=== PATIENT | female | born 1945 | race Hispanic/Latino ===

== ENCOUNTER 2018-04-09 12:59 | Emergency (ER) | payer MEDICARE, MEDICAID, SELFPAY ==
[2018-04-09 13:08] VITALS: BP 156/70; PULSE 65; RESP 22; TEMP 36.4; O2SAT 92; BMI 25.7
--- NOTE | 2018-04-09 13:20 | ED.PEDSOB ---
HPI - Pediatric SOB/Dyspnea General Chief Complaint: Shortness of Breath/Dyspnea Stated Complaint: PT STATES POSSIBLE PNEUMONIA Time Seen by Provider: 04/09/18 13:20 Related Data Home Medications Medication Instructions Recorded Confirmed furosemide 40 mg PO QDAY #90 11/10/17 04/01/18 Previous Rx's Medication Instructions Recorded amlodipine [Norvasc] 10 mg PO QDAY #90 tab 10/17/17 aspirin 81 mg PO QDAY #100 tab-cap 10/17/17 clopidogrel [Plavix] 75 mg PO QDAY #90 tab 10/17/17 isosorbide mononitrate 30 mg PO QDAY #90 tab 10/17/17 lisinopril 20 mg PO Q DAY #90 tab 10/17/17 ranitidine HCl 150 mg PO BID #60 tab 10/17/17 Glucose: Home Monitor pkg BID #1 10/26/17 Glucose: Test Strips str BID #60 10/26/17 glipizide 5 mg PO AMAC #30 tab 10/26/17 hydrocortisone acetate [Anusol-HC] 25 mg R BID PRN #10 supp 11/10/17 atorvastatin [Lipitor] 20 mg PO HS #90 tab 11/26/17 clotrimazole-betamethasone 1 1 applictn TOP Q12H #45 gram 03/23/18 %-0.05 % topical cream miscellaneous medical supply misc #1 each 03/23/18 metoprolol succinate 100 mg PO QDAY #30 ter 03/24/18 cephalexin 500 mg capsule 500 mg PO BID #8 cap 04/01/18 Allergies Allergy/AdvReac Type Severity Reaction Status Date / Time codeine [CODEINE] Allergy Unknown Verified 04/09/18 13:08 azithromycin [AZITHROMYCIN] AdvReac Mild GI UPSET Verified 04/09/18 13:08 PFSH Medical History Reactive airway disease (Chronic) CHF (congestive heart failure) (Chronic) Chronic kidney disease (Chronic 01/18/17) Essential hypertension (Chronic 01/18/17) 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) Rheumatoid arthritis (Chronic 01/18/17) Type 2 diabetes mellitus with chronic kidney disease, 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) Mild dementia (Chronic 01/26/17) Mild eczema (Chronic 01/18/17) Status post stroke (Resolved 10/26/17) Carpal tunnel syndrome (Acute) Cataract (Acute) Family History Brother Heart disease High cholesterol Father Heart disease Mother Diabetes mellitus Heart disease Social History pets and animals: No water heater temp set < 120 deg: Yes working smoke detector in home: Yes fire extinguisher in home: No carbon monox detector in home: No Smoking Status: Former smoker Course Vital Signs - 8 hr 04/09/18 13:08 Temperature 97.6 F Pulse Rate 65 Respiratory Rate 22 Blood Pressure 156/70 H Pulse Oximetry 92 Discharge Plan Departure Prescriptions: No Action isosorbide mononitrate 30 MG tablet extended release 24 hr 30 mg PO QDAY Qty: 90 RF: 5 amlodipine [Norvasc] 5 MG tablet 10 mg PO QDAY Qty: 90 RF: 5 lisinopril 20 MG tablet 20 mg PO Q DAY Qty: 90 RF: 5 clopidogrel [Plavix] 75 MG tablet 75 mg PO QDAY Qty: 90 RF: 5 aspirin 81 MG tablet,delayed release (DR/EC) 81 mg PO QDAY Qty: 100 RF: 5 ranitidine HCl 150 MG tablet 150 mg PO BID Qty: 60 RF: 5 Glucose: Home Monitor BID Qty: 1 RF: 0 Glucose: Test Strips BID Qty: 60 RF: 4 glipizide 5 MG tablet 5 mg PO AMAC Qty: 30 RF: 0 furosemide 40 MG tablet 40 mg PO QDAY Qty: 90 RF: 0 hydrocortisone acetate [Anusol-HC] 25 MG suppository 25 mg R BID PRNQty: 10 RF: 0 atorvastatin [Lipitor] 20 MG tablet 20 mg PO HS Qty: 90 RF: 3 metoprolol succinate 100 mg tablet extended release 24 hr 100 mg PO QDAY Qty: 30 RF: 1 clotrimazole-betamethasone [Lotrisone] 1-0.05 % cream 1 applictn TOP Q12H Qty: 45 RF: 0 miscellaneous medical supply [Blood Pressure Cuff] misc .ROUTE .MEDSUPPLY Qty: 1 RF: 0 cephalexin 500 mg capsule 500 mg PO BID Qty: 8 RF: 0
--- NOTE | 2018-04-09 13:26 | DI.RAD.S_ITS ---
PROCEDURE: XR CHEST 1V INDICATIONS: shortness of breath TECHNIQUE: One view of the chest was acquired. COMPARISON: None. FINDINGS: Surgical changes and devices: Median sternotomy. Lungs and pleura: No pleural effusions or pneumothorax. There is moderate basilar predominant interstitial pulmonary opacity. Mediastinum: Mediastinal contours appear normal. Heart size is enlarged. Bones and chest wall: No suspicious bony lesions. Overlying soft tissues appear unremarkable. IMPRESSION: Moderate CHF versus atypical pneumonia. Dictated by: Prabhu Haley M.D. on 04/09/2018 at 14:02 Approved by: Prabhu Haley M.D. on 04/09/2018 at 14:02
[2018-04-09] MEDS: ALBUTEROL/IPRATROPIUM 3 ML AMPUL INH (13:28)
[2018-04-09 13:44] VITALS: PULSE 65; RESP 18; O2SAT 95
[2018-04-09 13:46] LABS: Add Manual Diff / Slide Review NO; Basophils Percent Auto 0.6 % (0-2); Eosinophils Percent Auto 3.1 % (2-4); Hemoglobin 12.2 g/dL (12.0-16.0); Lymphocytes Percent Auto 15.2 % (25-40); Mean Corpuscular HGB Conc 33.9 % (30-36); Mean Corpuscular Hemoglobin 31.4 PG (26-34); Mean Corpuscular Volume 92.6 fL (80-100); Monocytes Percent Auto 10.3 % (3-14); Neutrophils Absolute Auto 3300 /uL (3000-5900); Neutrophils Percent Auto 70.8 % (50-75); Platelet Count 130 X10^3/uL (150-400); Red Blood Cell Count 3.89 X10^6/uL (4.0-5.2); Red Cell Distribution Width 13.7 % (11.6-14.8); White Blood Cell Count 4.7 X10^3/uL (4.5-11.0)
[2018-04-09 13:58] LABS: INR 1.1 (0.9-1.3); Prothrombin Time 11.7 SECONDS (10.1-12.7)
[2018-04-09 14:01] LABS: D Dimer 423 ng/mL (<231)
[2018-04-09 14:02] LABS: Albumin 3.8 g/dL (3.5-5.0); Albumin Globulin Ratio 1.2 (1.0-2.8); Alkaline Phosphatase 95 U/L (38-126); BUN Creatinine Ratio 13.8 (6-22); Bilirubin Total 1.1 mg/dL (0.2-1.3); Calcium 9.2 mg/dL (8.4-10.2); Estimated Glomerular Filt Rate 18.1 mL/min (>60); Globulin 3.2 g/dL (1.7-4.1); Glucose 185 mg/dL (80-110); Lactate (Lactic Acid) 0.9 mmol/L (0.7-2.1); Sodium 141 mmol/L (137-145)
[2018-04-09 14:05] LABS: HEMOLYSIS 161 (0-50)
[2018-04-09 14:13] LABS: Alanine Aminotransferase 61 IU/L (9-52); Aspartate Aminotransferase 31 IU/L (14-36); Potassium 4.1 mmol/L (3.4-5.1)
[2018-04-09 14:19] VITALS: BP 165/63; PULSE 58; RESP 14; O2SAT 93
[2018-04-09 14:44] LABS: Creatine Kinase 39 U/L (30-135); Magnesium 1.9 mg/dL (1.6-2.3)
[2018-04-09 14:46] LABS: Procalcitonin < 0.05 ng/mL (<0.5)
[2018-04-09 14:58] LABS: Troponin I < 0.012 ng/mL (0.01-0.034)
[2018-04-09 16:05] VITALS: BP 125/71; PULSE 57; RESP 16; O2SAT 92
[2018-04-09] MEDS: cefTRIAXone 2,000 MG VIAL 1000 MG IM (16:26)
--- NOTE | 2018-04-09 19:07 | ED.SOB ---
HPI - SOB/Dyspnea General Chief Complaint: Shortness of Breath/Dyspnea Stated Complaint: PT STATES POSSIBLE PNEUMONIA Time Seen by Provider: 04/09/18 13:20 Source: patient Mode of arrival: ambulatory Limitations: no limitations History of Present Illness 73-year-old female with a history of hypertension, hyperlipidemia, diabetes, previous stroke, and coronary artery disease status post 4 vessel CABG and several MIs since then presents with cough and shortness of breath that began earlier today. She has also been significantly wheezy. On arrival here she received a Duoneb remarkably improved. She does not take inhalers at home and denies a history of COPD. She did smoke for approximately 35 years, quitting over 10 years ago. She also denies a history of known heart failure, although she does take Lasix as 1 of her daily medications. She denies fevers or chills. Her cough is productive for yellow sputum which is new for her. She has been on Keflex for skin infection from her primary care provider and has only several days remaining MD Complaint: shortness of breath and cough Related Data Home Medications Medication Instructions Recorded Confirmed furosemide 40 mg PO QDAY #90 11/10/17 04/01/18 Previous Rx's Medication Instructions Recorded amlodipine [Norvasc] 10 mg PO QDAY #90 tab 10/17/17 aspirin 81 mg PO QDAY #100 tab-cap 10/17/17 clopidogrel [Plavix] 75 mg PO QDAY #90 tab 10/17/17 isosorbide mononitrate 30 mg PO QDAY #90 tab 10/17/17 lisinopril 20 mg PO Q DAY #90 tab 10/17/17 ranitidine HCl 150 mg PO BID #60 tab 10/17/17 Glucose: Home Monitor pkg BID #1 10/26/17 Glucose: Test Strips str BID #60 10/26/17 glipizide 5 mg PO AMAC #30 tab 10/26/17 hydrocortisone acetate [Anusol-HC] 25 mg R BID PRN #10 supp 11/10/17 atorvastatin [Lipitor] 20 mg PO HS #90 tab 11/26/17 clotrimazole-betamethasone 1 1 applictn TOP Q12H #45 gram 03/23/18 %-0.05 % topical cream miscellaneous medical supply misc #1 each 03/23/18 metoprolol succinate 100 mg PO QDAY #30 ter 03/24/18 cephalexin 500 mg capsule 500 mg PO BID #8 cap 04/01/18 albuterol sulfate [ProAir HFA] 2 puff INHALATION Q4-6H PRN #8 gram 04/09/18 azithromycin 500 mg PO DAILY 5 Days #6 tab 04/09/18 prednisone 40 mg PO DAILY #10 tab 04/09/18 Allergies Allergy/AdvReac Type Severity Reaction Status Date / Time codeine [CODEINE] Allergy Unknown Verified 04/09/18 13:08 azithromycin [AZITHROMYCIN] AdvReac Mild GI UPSET Verified 04/09/18 13:08 Review of Systems Review of Systems All systems reviewed & are unremarkable except as noted in HPI and below Constitutional Denies chills, Denies fever(s), Denies lethargy and Denies weakness Eyes Denies change in vision, Denies eye discharge, Denies irritation and Denies loss of vision ENT Ears, Nose, Mouth, and Throat: Denies change in voice, Denies neck pain and Denies sore throat Cardiovascular Denies chest pain, Denies irregular heart rhythm, Denies lightheadedness, Denies palpitations, Reports dyspnea, Reports dyspnea on exertion and Denies orthopnea Respiratory Reports cough, Reports excessive phlegm production, Denies pain on inspiration, Reports dyspnea, Reports dyspnea on exertion, Denies stridor and Reports wheezing Gastrointestinal Gastrointestinal: Denies abdominal pain, Denies change in bowel habits, Denies diarrhea, Denies nausea and Denies vomiting Genitourinary Denies hematuria, Denies flank pain, Denies urinary incontinence and Denies urinary urgency Musculoskeletal Denies neck pain Integumentary/Breasts Denies pruritus, Denies erythema, Denies rash and Denies wounds Neurologic Denies confusion, Denies loss of vision and Denies weakness Psychiatric Denies anxiety, Denies confusion, Denies depression, Denies homicidal ideation and Denies suicidal ideation Endocrine Denies palpitations Hematologic/Lymphatic Denies easy bruising Allergic/Immunologic Reports wheezing PFSH Medical History Reactive airway disease (Chronic) CHF (congestive heart failure) (Chronic) Chronic kidney disease (Chronic 01/18/17) Essential hypertension (Chronic 01/18/17) 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) Rheumatoid arthritis (Chronic 01/18/17) Type 2 diabetes mellitus with chronic kidney disease, 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) Mild dementia (Chronic 01/26/17) Mild eczema (Chronic 01/18/17) Status post stroke (Resolved 10/26/17) Carpal tunnel syndrome (Acute) Cataract (Acute) Family History Brother Heart disease High cholesterol Father Heart disease Mother Diabetes mellitus Heart disease Social History pets and animals: No water heater temp set < 120 deg: Yes working smoke detector in home: Yes fire extinguisher in home: No carbon monox detector in home: No Smoking Status: Former smoker Exam Initial Vital Signs Initial Vital Signs: Vital Signs Temperature 97.6 F 04/09/18 13:08 Pulse Rate 65 04/09/18 13:08 Respiratory Rate 22 04/09/18 13:08 Blood Pressure 156/70 H 04/09/18 13:08 Pulse Oximetry 92 04/09/18 13:08 Const General: cooperative and well developed Nutritional Appearance: well nourished Orientation: alert, awake, oriented x3 and not confused HENMT Head: normocephalic and atraumatic Ears: external ears normal and TM's normal bilaterally Nose: external nose normal and No nasal discharge Face and sinus: sinuses nontender, face symmetric, no sinus tenderness and No dry mucous membranes Mouth: oral mucosae normal and moist mucous membranes Teeth and gingiva: dentition normal Throat: tonsils normal and uvula midline Eyes General: appearance normal, both eyes and all related structures Eyelids: eyelids normal Conjunctivae: conjunctivae normal Sclera: sclerae normal Pupils: PERRL EOM: EOM intact bilaterally Neck Neck: normal visual inspection, trachea midline, No lymphadenopathy, No midline deformity and No JVD Lymphatic: No lymphedema Chest Chest: normal inspection of the chest Resp Effort & Inspection: normal respiratory effort, able to speak in complete sentences, no respiratory distress and no use of accessory muscles Auscultation: no rales, rhonchi upper bilaterally and lower bilaterally and wheezes expiratory wheezes and scattered wheezes Cardio Rate: regular rate Rhythm: regular rhythm Heart Sounds: no click, no gallops, no murmurs and no rubs Pulses: normal peripheral pulses GI Inspection: non-distended Palpation: soft, no hepatosplenomegaly, No guarding, No pulsatile mass and No tender Auscultation: normal bowel sounds Back/Spine/Pelvis Back: No CVA tenderness Cervical Spine: cervical ROM normal and No pain with cervical ROM Thoracic/Lumbar Spine: thoracic and lumbar spine normal to inspection Skin General: no rashes or lesions noted, No jaundice and No petechiae Neuro General: alert, oriented x3, gait normal and no focal motor deficits Cranial Nerves: CN's II-XI intact bilaterally Speech: speech normal Motor: strength 5/5 throughout Sensory Exam: no sensory deficits noted Extrem General: full ROM, no clubbing, cyanosis or edema, no pedal edema and no calf tenderness Psych Appearance: well kempt Mental Status: mental status grossly normal Attitude: cooperative Thought Content: normal and suicidality Judgment: judgment good Course Orders Ordered: ED Orders 04/09/18 13:21 EKG-12 Lead Stat 04/09/18 13:23 Consult to Respiratory Therapy Evaluate & Treat 04/09/18 13:26 XR chest 1V Stat 04/09/18 13:30 B Type Natriuretic Peptide Stat Complete Blood Count AUTO DIFF Stat Comprehensive Metabolic Panel Stat D Dimer Stat Lactate (Lactic Acid) Stat Magnesium Stat Procalcitonin Stat Prothrombin Time INR Stat Troponin with CK Cardiac Panel Stat Discontinued Medications Albuterol/Ipratropium (Duoneb) 3 ml INH NOW ONE Stop: 04/09/18 13:23 Last Admin: 04/09/18 13:28 Dose: 3 ml Ceftriaxone Sodium (Rocephin) 1,000 mg IM NOW ONE Stop: 04/09/18 16:25 Last Admin: 04/09/18 16:26 Dose: 1,000 mg Vital Signs - 8 hr 04/09/18 13:08 04/09/18 13:44 04/09/18 14:19 Temperature 97.6 F Pulse Rate 65 65 58 L Respiratory Rate 22 18 14 Blood Pressure 156/70 H Blood Pressure [Right Arm] 165/63 H Pulse Oximetry 92 95 93 04/09/18 16:05 Temperature Pulse Rate 57 L Respiratory Rate 16 Blood Pressure Blood Pressure [Right Arm] 125/71 H Pulse Oximetry 92 MDM - SOB/Dyspnea Differential Diagnosis Likely acute exacerbation of chronic obstructive airways disease, congestive heart failure, community acquired pneumonia and pulmonary embolism Medical Records Attestation: I reviewed the patient's medical records. Lab Data Attestation: I reviewed the patient's lab results. Result diagrams: 04/09/18 13:30 04/09/18 13:30 Lab Results 04/09/18 04/09/18 04/09/18 Range/Units 13:30 13:30 13:30 WBC 4.7 (4.5-11.0) X10^3/uL RBC 3.89 L (4.0-5.2) X10^6/uL Hgb 12.2 (12.0-16.0) g/dL Hct 36.0 (36-46) % MCV 92.6 (80-100) fL MCH 31.4 (26-34) PG MCHC 33.9 (30-36) % RDW 13.7 (11.6-14.8) % Plt Count 130 L (150-400) X10^3/uL Neut % (Auto) 70.8 (50-75) % Lymph % (Auto) 15.2 L (25-40) % [place] % (Auto) 10.3 (3-14) % Eos % (Auto) 3.1 (2-4) % Baso % (Auto) 0.6 (0-2) % Neut # (Auto) 3300 (7023-8795) /uL PT (10.1-12.7) SECONDS INR (0.9-1.3) D-Dimer (<231) ng/mL Sodium (137-145) mmol/L Potassium (3.4-5.1) mmol/L Chloride (98-107) mmol/L Carbon Dioxide (22-32) mmol/L BUN (7-17) mg/dL Creatinine (0.52-1.04) mg/dL Estimated GFR (>60) mL/min BUN/Creatinine Ratio (6-22) Glucose (80-110) mg/dL Lactate (0.7-2.1) mmol/L Calcium (8.4-10.2) mg/dL Magnesium 1.9 (1.6-2.3) mg/dL Total Bilirubin (0.2-1.3) mg/dL AST (14-36) IU/L ALT (9-52) IU/L Alkaline Phosphatase (38-126) U/L Total Creatine Kinase 39 (30-135) U/L Troponin I < 0.012 (0.01-0.034) ng/mL B-Natriuretic Peptide 1540.0 (<100) Total Protein (6.3-8.2) g/dL Albumin (3.5-5.0) g/dL Globulin (1.7-4.1) g/dL Albumin/Globulin Ratio (1.0-2.8) Procalcitonin < 0.05 (<0.5) ng/mL 04/09/18 04/09/18 04/09/18 Range/Units 13:30 13:30 13:30 WBC (4.5-11.0) X10^3/uL RBC (4.0-5.2) X10^6/uL Hgb (12.0-16.0) g/dL Hct (36-46) % MCV (80-100) fL MCH (26-34) PG MCHC (30-36) % RDW (11.6-14.8) % Plt Count (150-400) X10^3/uL Neut % (Auto) (50-75) % Lymph % (Auto) (25-40) % [place] % (Auto) (3-14) % Eos % (Auto) (2-4) % Baso % (Auto) (0-2) % Neut # (Auto) (1276-2541) /uL PT 11.7 (10.1-12.7) SECONDS INR 1.1 (0.9-1.3) D-Dimer 423 H (<231) ng/mL Sodium 141 (137-145) mmol/L Potassium 4.1 (3.4-5.1) mmol/L Chloride 109.0 H (98-107) mmol/L Carbon Dioxide 19.0 L (22-32) mmol/L BUN 36.0 H (7-17) mg/dL Creatinine 2.60 H (0.52-1.04) mg/dL Estimated GFR 18.1 L (>60) mL/min BUN/Creatinine Ratio 13.8 (6-22) Glucose 185 H (80-110) mg/dL Lactate 0.9 (0.7-2.1) mmol/L Calcium 9.2 (8.4-10.2) mg/dL Magnesium (1.6-2.3) mg/dL Total Bilirubin 1.1 (0.2-1.3) mg/dL AST 31 (14-36) IU/L ALT 61 H (9-52) IU/L Alkaline Phosphatase 95 (38-126) U/L Total Creatine Kinase (30-135) U/L Troponin I (0.01-0.034) ng/mL B-Natriuretic Peptide (<100) Total Protein 7.0 (6.3-8.2) g/dL Albumin 3.8 (3.5-5.0) g/dL Globulin 3.2 (1.7-4.1) g/dL Albumin/Globulin Ratio 1.2 (1.0-2.8) Procalcitonin (<0.5) ng/mL Imaging Data Chest x-ray: Radiologist's impression: PROCEDURE: XR CHEST 1V INDICATIONS: shortness of breath TECHNIQUE: One view of the chest was acquired. COMPARISON: None. FINDINGS: Surgical changes and devices: Median sternotomy. Lungs and pleura: No pleural effusions or pneumothorax. There is moderate basilar predominant interstitial pulmonary opacity. Mediastinum: Mediastinal contours appear normal. Heart size is enlarged. Bones and chest wall: No suspicious bony lesions. Overlying soft tissues appear unremarkable. IMPRESSION: Moderate CHF versus atypical pneumonia. Dictated by: Prabhu Haley M.D. on 04/09/2018 at 14:02 Approved by: Prabhu Haley M.D. on 04/09/2018 at 14:02 ECG Data Attestation: I personally reviewed and interpreted this ECG as follows: Prior ECG tracings: available for review Interpretation: EKG performed at 1:14 p.m. shows sinus rhythm with no acute ischemia. She has Q-waves present in leads 3, AVF, V1 through V3 consistent with old ND. No change from previous EKG dated 01/11/2017 MDM Narrative Medical decision making narrative: For shortness of breath I considered mainly CHF versus COPD exacerbation/pneumonia. She has not been diagnosed formally with COPD, however given her smoking history and her age she is certainly at risk for this. With her increased sputum production, sputum color change, and wheezing/chest tightness her symptoms are consistent with a COPD exacerbation. Her chest x-ray does showed atypical pneumonia versus CHF. Her BNP is elevated but there is no JVD and she has no lower extremity edema. I do not suspect that this is CHF related. She is already on a diuretic medication. She was started on steroids, azithromycin, given a dose of Rocephin prior to discharge, and advised close follow-up. Return precautions were given. I considered pulmonary embolus my workup, however with the wheezing and chest tightness, COPD, pneumonia, and CHF are more likely. She is not hypoxic or tachycardic here. She has no lower extremity edema. She may benefit from pulmonary function tests after the acute episode she is experiencing. Also it is noted that she has chronic renal failure and her kidney function is at baseline today. she has no SIRS criteria. Lactate is not elevated nor is procalcitonin. I also considered ACS, however she has no change in her EKG and troponin is not elevated. Discharge Plan Departure Patient Disposition: Home, Self-Care Clinical Impression: Atypical pneumonia, Wheezing Discharge Date/Time: 04/09/18 16:39 Interventions: ED Discharge Assessment Last Done: 04/09/18 16:31 Instructions: DI for Atypical Pneumonia Activity Restrictions/Additional Instructions: Thank you for trusting is with her care today. You're ER evaluation revealed a pneumonia. Please take the azithromycin prescription as prescribed. Also take the prednisone prescription to help with shortness of breath and chest tightness. Use the albuterol inhaler as needed for wheezing or shortness of breath. Return to the ER for new or worsening symptoms. Prescriptions: New azithromycin 250 mg tablet 500 mg PO DAILY 5 Days Qty: 6 RF: 0 prednisone 20 mg tablet 40 mg PO DAILY Qty: 10 RF: 0 albuterol sulfate [ProAir HFA] 90 mcg/actuation HFA aerosol inhaler 2 puff INHALATION Q4-6H PRN (Reason: shortness of breath or wheezing) Qty: 8 RF: 0 No Action isosorbide mononitrate 30 MG tablet extended release 24 hr 30 mg PO QDAY Qty: 90 RF: 5 amlodipine [Norvasc] 5 MG tablet 10 mg PO QDAY Qty: 90 RF: 5 lisinopril 20 MG tablet 20 mg PO Q DAY Qty: 90 RF: 5 clopidogrel [Plavix] 75 MG tablet 75 mg PO QDAY Qty: 90 RF: 5 aspirin 81 MG tablet,delayed release (DR/EC) 81 mg PO QDAY Qty: 100 RF: 5 ranitidine HCl 150 MG tablet 150 mg PO BID Qty: 60 RF: 5 Glucose: Home Monitor BID Qty: 1 RF: 0 Glucose: Test Strips BID Qty: 60 RF: 4 glipizide 5 MG tablet 5 mg PO AMAC Qty: 30 RF: 0 furosemide 40 MG tablet 40 mg PO QDAY Qty: 90 RF: 0 hydrocortisone acetate [Anusol-HC] 25 MG suppository 25 mg R BID PRNQty: 10 RF: 0 atorvastatin [Lipitor] 20 MG tablet 20 mg PO HS Qty: 90 RF: 3 metoprolol succinate 100 mg tablet extended release 24 hr 100 mg PO QDAY Qty: 30 RF: 1 clotrimazole-betamethasone [Lotrisone] 1-0.05 % cream 1 applictn TOP Q12H Qty: 45 RF: 0 miscellaneous medical supply [Blood Pressure Cuff] misc .ROUTE .MEDSUPPLY Qty: 1 RF: 0 cephalexin 500 mg capsule 500 mg PO BID Qty: 8 RF: 0 Referrals: Alexa Sauer MD [Primary Care Provider] -
== END 2018-04-09 16:39 | disposition home or self-care (01) ==
PROVIDERS: Emergency Provider Emergency Medicine; PCP Family Medicine
DX: J18.9 Pneumonia, unspecified organism (principal); R06.2 Wheezing
CPT/HCPCS: 36591; 71045; 80053; 82550; 82553; 83605; 83735; 83880; 84145; 84484; 85025; 85379; 85610; 93005; 94640; 96372; 99282; 99285; J0696

== ENCOUNTER 2018-06-29 14:33 | Emergency (ER) | payer MEDICARE, MEDICAID, SELFPAY ==
[2018-06-29] VITALS (7 sets, daily range): BP systolic 111–134; BP diastolic 56–97; PULSE 54–60; RESP 18–27; TEMP 36.5; O2SAT 91–98; BMI 37.8
--- NOTE | 2018-06-29 14:42 | DI.RAD.S_ITS ---
PROCEDURE: XR CHEST 2V INDICATIONS: shortness of breath TECHNIQUE: 2 views of the chest were acquired. COMPARISON: [facility], CHEST 2 VIEW, 10/13/2017, 12:24. [facility], CHEST 1 VIEW, 10/16/2017, 8:38. [facility], CHEST 1 VIEW, 11/10/2017, 14:07. [facility], XR CHEST 1V, 04/09/2018, 13:34. FINDINGS: Surgical changes and devices: Post CABG changes are seen. Lungs and pleura: There is a small right-sided pleural effusion, overlying streaky density. Interstitial prominence is seen throughout. No pneumothorax is seen. Mediastinum: Mediastinal contours are normal. Heart size is normal. Bones and chest wall: No suspicious bony abnormalities. Age-appropriate bony degenerative changes are seen. Soft tissues appear unremarkable. IMPRESSION: New right-sided pleural effusion, and overlying density, which may be related to atelectasis or infiltrate. Interstitial prominence is seen throughout. The interstitial prominence is nonspecific, yet may be related to pulmonary edema. Postoperative and degenerative changes. Dictated by: Kam Mckeon M.D. on 06/29/2018 at 14:28 Approved by: Kam Mckeon M.D. on 06/29/2018 at 14:30
[2018-06-29] MEDS: ALBUTEROL/IPRATROPIUM 3 ML AMPUL INH (14:46)
[2018-06-29 15:05] LABS: Add Manual Diff / Slide Review NO; Basophils Percent Auto 0.6 % (0-2); Eosinophils Percent Auto 0.8 % (2-4); Hematocrit 35.1 % (36-46); Hemoglobin 11.4 g/dL (12.0-16.0); Lymphocytes Percent Auto 21.3 % (25-40); Mean Corpuscular HGB Conc 32.6 % (30-36); Mean Corpuscular Hemoglobin 29.7 PG (26-34); Monocytes Percent Auto 9.7 % (3-14); Neutrophils Absolute Auto 2900 /uL (3000-5900); Neutrophils Percent Auto 67.6 % (50-75); Platelet Count 118 X10^3/uL (150-400); Red Blood Cell Count 3.85 X10^6/uL (4.0-5.2); Red Cell Distribution Width 15.7 % (11.6-14.8); White Blood Cell Count 4.4 X10^3/uL (4.5-11.0)
[2018-06-29 15:18] LABS: Alanine Aminotransferase 91 IU/L (9-52); Albumin 3.9 g/dL (3.5-5.0); Albumin Globulin Ratio 1.5 (1.0-2.8); Alkaline Phosphatase 177 U/L (38-126); Aspartate Aminotransferase 77 IU/L (14-36); BUN Creatinine Ratio 20.7 (6-22); Bilirubin Total 0.6 mg/dL (0.2-1.3); Blood Urea Nitrogen 60 mg/dL (7-17); Calcium 9.4 mg/dL (8.4-10.2); Carbon Dioxide 21 mmol/L (22-32); Chloride 107 mmol/L (98-107); Globulin 2.6 g/dL (1.7-4.1); Glucose 160 mg/dL (80-110); HEMOLYSIS < 15 (0-50); Potassium 3.9 mmol/L (3.4-5.1); Sodium 142 mmol/L (137-145); Total Protein 6.5 g/dL (6.3-8.2)
[2018-06-29 15:40] LABS: Lactate (Lactic Acid) 1.1 mmol/L (0.7-2.1)
[2018-06-29] MEDS: CEFTRIAXONE 2 GM/50 ML FROZ.PIGGY IV (16:15)
[2018-06-29] MEDS: AZITHROMYCIN 500 MG in DEXTROSE 5% IN WATER 250 ML IV (16:54)
[2018-06-29] MEDS: FUROSEMIDE 40 MG/4 ML VIAL 20 MG IV (17:43)
--- NOTE | 2018-07-15 02:35 | ED_ITS ---
HPI - SOB/Dyspnea General Chief Complaint: Shortness of Breath/Dyspnea Stated Complaint: SOB Time Seen by Provider: 06/29/18 15:16 Source: patient Limitations: no limitations Related Data Home Medications Medication Instructions Recorded Confirmed furosemide 40 mg PO QDAY #90 11/10/17 04/01/18 Previous Rx's Medication Instructions Recorded amlodipine [Norvasc] 10 mg PO QDAY #90 tab 10/17/17 aspirin 81 mg PO QDAY #100 tab-cap 10/17/17 clopidogrel [Plavix] 75 mg PO QDAY #90 tab 10/17/17 isosorbide mononitrate 30 mg PO QDAY #90 tab 10/17/17 lisinopril 20 mg PO Q DAY #90 tab 10/17/17 Glucose: Home Monitor pkg BID #1 10/26/17 Glucose: Test Strips str BID #60 10/26/17 glipizide 5 mg PO AMAC #30 tab 10/26/17 hydrocortisone acetate [Anusol-HC] 25 mg R BID PRN #10 supp 11/10/17 atorvastatin [Lipitor] 20 mg PO HS #90 tab 11/26/17 clotrimazole-betamethasone 1 1 applictn TOP Q12H #45 gram 03/23/18 %-0.05 % topical cream miscellaneous medical supply misc #1 each 03/23/18 cephalexin 500 mg capsule 500 mg PO BID #8 cap 04/01/18 prednisone 40 mg PO DAILY #10 tab 04/09/18 albuterol sulfate HFA 90 2 puff INHALATION Q4-6H PRN #8 gram 04/15/18 mcg/actuation aerosol inhaler metoprolol succinate ER 100 mg 100 mg PO QDAY #30 ter 06/27/18 tablet,extended release 24 hr ranitidine HCl 150 mg PO BID #60 tab 06/27/18 azithromycin [Zithromax Z-Minh] See Label Instructions .ROUTE 06/29/18 .COMPLEX #6 tab Allergies Allergy/AdvReac Type Severity Reaction Status Date / Time codeine [CODEINE] Allergy Unknown Verified 06/29/18 14:38 azithromycin [AZITHROMYCIN] AdvReac Mild GI UPSET Verified 06/29/18 14:38 PFSH Medical History Reactive airway disease (Chronic) CHF (congestive heart failure) (Chronic) Chronic kidney disease (Chronic 01/18/17) Essential hypertension (Chronic 01/18/17) 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) Rheumatoid arthritis (Chronic 01/18/17) Type 2 diabetes mellitus with chronic kidney disease, 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) Mild dementia (Chronic 01/26/17) Mild eczema (Chronic 01/18/17) Status post stroke (Resolved 10/26/17) Carpal tunnel syndrome (Acute) Cataract (Acute) Family History Brother Heart disease High cholesterol Father Heart disease Mother Diabetes mellitus Heart disease Social History pets and animals: No water heater temp set < 120 deg: Yes working smoke detector in home: Yes fire extinguisher in home: No carbon monox detector in home: No Smoking Status: Former smoker Exam Initial Vital Signs Initial Vital Signs: Vital Signs Temperature 97.7 F 06/29/18 14:38 Pulse Rate 59 L 06/29/18 14:38 Respiratory Rate 22 06/29/18 14:38 Blood Pressure 126/74 H 06/29/18 14:38 Pulse Oximetry 91 06/29/18 14:38 Course Orders Ordered: Discontinued Medications Albuterol/Ipratropium (Duoneb) 3 ml INH NOW PRN PRN Reason: Shortness Of Breath Last Admin: 06/29/18 14:46 Dose: 3 ml Furosemide (Lasix) 40 mg IV NOW ONE Stop: 06/29/18 17:13 Last Admin: 06/29/18 17:42 Dose: Furosemide (Lasix) 20 mg IV NOW ONE Stop: 06/29/18 17:42 Last Admin: 06/29/18 17:43 Dose: 20 mg Azithromycin 500 mg/ Dextrose 250 mls @ 250 mls/hr IV NOW ONE Stop: 06/29/18 15:59 Last Infusion: 06/29/18 18:27 Dose: 0 mls/hr Admin: 06/29/18 16:54 Dose: 250 mls/hr Ceftriaxone Sodium/Dextrose (Rocephin) 2 gm in 50 mls @ 100 mls/hr IV NOW ONE Stop: 06/29/18 16:27 Last Infusion: 06/29/18 16:44 Dose: 0 mls/hr Admin: 06/29/18 16:15 Dose: 100 mls/hr Vital Signs - 8 hr 06/29/18 14:38 06/29/18 14:47 Temperature 97.7 F Pulse Rate 59 L 57 L Respiratory Rate 22 27 H Blood Pressure 126/74 H Pulse Oximetry 91 98 MDM - SOB/Dyspnea Lab Data Result diagrams: 06/29/18 14:55 06/29/18 14:55 Lab Results 06/29/18 06/29/18 06/29/18 Range/Units 14:55 14:55 14:55 WBC 4.4 L (4.5-11.0) X10^3/uL RBC 3.85 L (4.0-5.2) X10^6/uL Hgb 11.4 L (12.0-16.0) g/dL Hct 35.1 L (36-46) % MCV 91.0 (80-100) fL MCH 29.7 (26-34) PG MCHC 32.6 (30-36) % RDW 15.7 H (11.6-14.8) % Plt Count 118 L (150-400) X10^3/uL Neut % (Auto) 67.6 (50-75) % Lymph % (Auto) 21.3 L (25-40) % [place] % (Auto) 9.7 (3-14) % Eos % (Auto) 0.8 L (2-4) % Baso % (Auto) 0.6 (0-2) % Neut # (Auto) 2900 L (6784-9889) /uL Sodium 142 (137-145) mmol/L Potassium 3.9 (3.4-5.1) mmol/L Chloride 107 (98-107) mmol/L Carbon Dioxide 21 L (22-32) mmol/L BUN 60 H (7-17) mg/dL Creatinine 2.90 H (0.52-1.04) mg/dL Estimated GFR 16.0 L (>60) mL/min BUN/Creatinine Ratio 20.7 (6-22) Glucose 160 H (80-110) mg/dL Lactate (0.7-2.1) mmol/L Calcium 9.4 (8.4-10.2) mg/dL Total Bilirubin 0.6 (0.2-1.3) mg/dL AST 77 H (14-36) IU/L ALT 91 H (9-52) IU/L Alkaline Phosphatase 177 H (38-126) U/L B-Natriuretic Peptide 3210.0 H (<100) Total Protein 6.5 (6.3-8.2) g/dL Albumin 3.9 (3.5-5.0) g/dL Globulin 2.6 (1.7-4.1) g/dL Albumin/Globulin Ratio 1.5 (1.0-2.8) 06/29/18 Range/Units 15:22 WBC (4.5-11.0) X10^3/uL RBC (4.0-5.2) X10^6/uL Hgb (12.0-16.0) g/dL Hct (36-46) % MCV (80-100) fL MCH (26-34) PG MCHC (30-36) % RDW (11.6-14.8) % Plt Count (150-400) X10^3/uL Neut % (Auto) (50-75) % Lymph % (Auto) (25-40) % [place] % (Auto) (3-14) % Eos % (Auto) (2-4) % Baso % (Auto) (0-2) % Neut # (Auto) (1255-0667) /uL Sodium (137-145) mmol/L Potassium (3.4-5.1) mmol/L Chloride (98-107) mmol/L Carbon Dioxide (22-32) mmol/L BUN (7-17) mg/dL Creatinine (0.52-1.04) mg/dL Estimated GFR (>60) mL/min BUN/Creatinine Ratio (6-22) Glucose (80-110) mg/dL Lactate 1.1 (0.7-2.1) mmol/L Calcium (8.4-10.2) mg/dL Total Bilirubin (0.2-1.3) mg/dL AST (14-36) IU/L ALT (9-52) IU/L Alkaline Phosphatase (38-126) U/L B-Natriuretic Peptide (<100) Total Protein (6.3-8.2) g/dL Albumin (3.5-5.0) g/dL Globulin (1.7-4.1) g/dL Albumin/Globulin Ratio (1.0-2.8) Discharge Plan Departure Patient Disposition: Home Clinical Impression: Pneumonia, CHF (congestive heart failure) Discharge Date/Time: 06/29/18 18:28 Interventions: ED Discharge Assessment Last Done: 06/29/18 18:27 Instructions: DI for Heart Failure, DI for Pneumonia -- Adult Activity Restrictions/Additional Instructions: Your chest x-ray shows some fluid buildup in the bottom of your right lung. This may be partially due to chronic congestive heart failure, but the appearance indicates that there may be some pneumonia involved, as well. Because of this, you have been started on antibiotics in the Emergency Department. You have also been given a small dose of a diuretic through the IV , which is similar to a ?water pill?. You have opted for home care, which is acceptable at this point in time. However, if your symptoms worsen at all you should return to the Emergency Department without delay. Please plan to follow up with your primary care physician on this coming Wednesday. Please call the office tomorrow to make an appointment. Prescriptions: New azithromycin [Zithromax Z-Minh] 250 mg tablet See Label Instructions .ROUTE .COMPLEX Qty: 6 RF: 0 No Action isosorbide mononitrate 30 MG tablet extended release 24 hr 30 mg PO QDAY Qty: 90 RF: 5 amlodipine [Norvasc] 5 MG tablet 10 mg PO QDAY Qty: 90 RF: 5 lisinopril 20 MG tablet 20 mg PO Q DAY Qty: 90 RF: 5 clopidogrel [Plavix] 75 MG tablet 75 mg PO QDAY Qty: 90 RF: 5 aspirin 81 MG tablet,delayed release (DR/EC) 81 mg PO QDAY Qty: 100 RF: 5 Glucose: Home Monitor BID Qty: 1 RF: 0 Glucose: Test Strips BID Qty: 60 RF: 4 glipizide 5 MG tablet 5 mg PO AMAC Qty: 30 RF: 0 furosemide 40 MG tablet 40 mg PO QDAY Qty: 90 RF: 0 hydrocortisone acetate [Anusol-HC] 25 MG suppository 25 mg R BID PRNQty: 10 RF: 0 atorvastatin [Lipitor] 20 MG tablet 20 mg PO HS Qty: 90 RF: 3 albuterol sulfate [ProAir HFA] 90 mcg/actuation HFA aerosol inhaler 2 puff INHALATION Q4-6H PRN (Reason: shortness of breath or wheezing) Qty: 8 RF: 2 metoprolol succinate 100 mg tablet extended release 24 hr 100 mg PO QDAY Qty: 30 RF: 3 ranitidine HCl 150 mg tablet 150 mg PO BID Qty: 60 RF: 5 clotrimazole-betamethasone [Lotrisone] 1-0.05 % cream 1 applictn TOP Q12H Qty: 45 RF: 0 miscellaneous medical supply [Blood Pressure Cuff] misc .ROUTE .MEDSUPPLY Qty: 1 RF: 0 cephalexin 500 mg capsule 500 mg PO BID Qty: 8 RF: 0 prednisone 20 mg tablet 40 mg PO DAILY Qty: 10 RF: 0 Referrals: Alexa Sauer MD [Primary Care Provider] - 07/04/18 12:00 am (Please call the office tomorrow to make an appointment for July 04.)
== END 2018-06-29 18:28 | disposition home or self-care (01) ==
PROVIDERS: Emergency Provider Emergency Medicine; PCP Family Medicine
DX: J18.9 Pneumonia, unspecified organism (principal); I50.9 Heart failure, unspecified
CPT/HCPCS: 36415; 36591; 71046; 80053; 83605; 83880; 85025; 93005; 93010; 94640; 96365; 96366; 96375; 99284; 99285; J0696; J1940

== ENCOUNTER 2018-09-09 11:07 | Emergency (ER) | payer MEDICARE, MEDICAID, SELFPAY ==
[2018-09-09 11:18] VITALS: BP 109/63; PULSE 55; RESP 18; TEMP 36.9; O2SAT 98; BMI 35.6
--- NOTE | 2018-09-09 11:18 | ED.FEMALEGU ---
HPI - Female Genitourinary General Chief complaint: Urogenital-Female Stated complaint: hemmoroids, uti? Time Seen by Provider: 09/09/18 11:16 Source: patient Mode of arrival: ambulatory Limitations: no limitations History of Present Illness HPI Narrative: 73-year-old female here with a family friend for concerns of bright red blood per rectum for 2 days and then also symptoms consistent with her prior urinary tract infections for 2 days as well. Patient is not on anticoagulation. She has no pain with bowel movements. No bleeding in between bowel movements. Has had urinary tract infections in the past and she states this feels like prior urinary tract infection Related Data Home Medications Medication Instructions Recorded Confirmed furosemide 40 mg PO QDAY #90 11/10/17 04/01/18 acyclovir 1 tab PO DAILY 09/09/18 09/09/18 albuterol sulfate [Ventolin HFA] 2 puff INHALATION Q4-6H PRN 09/09/18 09/09/18 amlodipine 10 mg PO DAILY 09/09/18 09/09/18 glipizide 1 tab PO BID 09/09/18 09/09/18 levetiracetam 250 mg PO BID 09/09/18 09/09/18 prednisolone acetate 1 drp OPHTHALMIC (EYE) QID 09/09/18 09/09/18 ranitidine HCl 09/09/18 09/09/18 torsemide 09/09/18 09/09/18 Previous Rx's Medication Instructions Recorded amlodipine [Norvasc] 10 mg PO QDAY #90 tab 10/17/17 aspirin 81 mg PO QDAY #100 tab-cap 10/17/17 clopidogrel [Plavix] 75 mg PO QDAY #90 tab 10/17/17 isosorbide mononitrate 30 mg PO QDAY #90 tab 10/17/17 lisinopril 20 mg PO Q DAY #90 tab 10/17/17 Glucose: Home Monitor pkg BID #1 10/26/17 Glucose: Test Strips str BID #60 10/26/17 hydrocortisone acetate [Anusol-HC] 25 mg R BID PRN #10 supp 11/10/17 atorvastatin [Lipitor] 20 mg PO HS #90 tab 11/26/17 clotrimazole-betamethasone 1 1 applictn TOP Q12H #45 gram 05/02/18 %-0.05 % topical cream miscellaneous medical supply [facility] [place] #1 each 03/23/18 cephalexin 500 mg capsule 500 mg PO BID #8 cap 04/01/18 prednisone 40 mg PO DAILY #10 tab 04/09/18 albuterol sulfate HFA 90 2 puff INHALATION Q4-6H PRN #8 gram 04/15/18 mcg/actuation aerosol inhaler azithromycin [Zithromax Z-Mnih] See Label Instructions .ROUTE 06/29/18 .COMPLEX #6 tab metoprolol succinate ER 100 mg 100 mg PO QDAY #90 tab 07/27/18 tablet,extended release 24 hr ranitidine HCl 150 mg PO BID #60 tab 07/27/18 nitrofurantoin monohyd/m-cryst 100 mg PO BID 5 Days #10 cap 09/09/18 Allergies Allergy/AdvReac Type Severity Reaction Status Date / Time codeine [CODEINE] Allergy Unknown Verified 06/29/18 14:38 azithromycin [AZITHROMYCIN] AdvReac Mild GI UPSET Verified 06/29/18 14:38 Review of Systems Constitutional Denies fever(s) Cardiovascular Denies chest pain and Denies dyspnea Respiratory Denies dyspnea Gastrointestinal Gastrointestinal: Denies abdominal pain, Denies change in stool character, Denies nausea and Denies vomiting Comments: Bright red blood per rectum Musculoskeletal Denies myalgias and Denies arthralgias Integumentary/Breasts Denies lesions and Denies rash [facility] Medical History Reactive airway disease (Chronic) CHF (congestive heart failure) (Chronic) Chronic kidney disease (Chronic 01/18/17) Essential hypertension (Chronic 01/18/17) 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) Rheumatoid arthritis (Chronic 01/18/17) Type 2 diabetes mellitus with chronic kidney disease, 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) Mild dementia (Chronic 01/26/17) Mild eczema (Chronic 01/18/17) Status post stroke (Resolved 10/26/17) Carpal tunnel syndrome (Acute) Cataract (Acute) Family History Brother Heart disease High cholesterol Father Heart disease Mother Diabetes mellitus Heart disease Social History pets and animals: No water heater temp set < 120 deg: Yes working smoke detector in home: Yes fire extinguisher in home: No carbon monox detector in home: No Smoking Status: Former smoker Exam Initial Vital Signs Initial Vital Signs: Vital Signs Temperature 98.4 F 09/09/18 11:18 Pulse Rate 55 L 09/09/18 11:18 Respiratory Rate 18 09/09/18 11:18 Blood Pressure 109/63 09/09/18 11:18 Pulse Oximetry 98 09/09/18 11:18 Const General: cooperative, healthy appearing, comfortable, well developed, well groomed and No acute distress Orientation: alert, awake and oriented x3 Resp Effort & Inspection: normal respiratory effort Auscultation: clear to auscultation bilaterally Cardio Rate: regular rate Rhythm: regular rhythm GI Inspection: non-distended Palpation: soft and No tender Rectal Exam: hemorrhoids (External) Skin Lesions: no lesions Rashes: no rashes Neuro General: alert, awake and oriented x3 Speech: speech normal Extrem General: normal to inspection and capillary refill normal Psych Appearance: grossly normal and well kempt Course Orders Ordered: ED Orders 09/09/18 11:23 UA Complete [Urinalysis and Microscopic] Stat Urine Culture Stat Vital Signs - 8 hr 09/09/18 11:18 Temperature 98.4 F Pulse Rate 55 L Respiratory Rate 18 Blood Pressure 109/63 Pulse Oximetry 98 MDM - Female Genitourinary Lab Data Attestation: I reviewed the patient's lab results. Lab Results 09/09/18 Range/Units 11:23 Urine Color Yellow Urine Appearance Clear Urine pH 6.5 (4.5-8.0) Ur Specific [place] 1.010 (1.000-1.035) Urine Protein 2+ H (Negative) Urine Glucose (UA) Negative (Normal) g/dL Urine Ketones Negative (NEGATIVE) Urine Occult Blood Trace-intact (Negative) Urine Nitrate Negative (Negative) Urine Bilirubin Negative (NEGATIVE) Urine Urobilinogen 0.2 (0.2) E.U./dL Ur Leukocyte Esterase Negative (NEGATIVE) Urine RBC 1-5/hpf (0-5/HPF) Urine WBC 5-10/hpf H (0-5/HPF) Ur Squamous Epith Cells 1-5 /hpf Urine Bacteria Few (2-10) H (None) Ur Culture Indicated? Specimen cultured Micro UA Comment Not Reportable MDM Narrative Medical decision making narrative: Patient with 1 external non thrombosed hemorrhoid which is most likely the cause of her bright red blood per rectum. She does have bacteria and white blood cells in her urine and given her symptoms will treat this with an antibiotic. No signs of pyelonephritis. She has no abdominal pain. Hold on further workup for now. Patient was given return precautions. She was told that there was a urine culture pending. She does have a follow-up with her primary doctor. She expressed understanding and agreement with plan. Discharge Plan Departure Patient Disposition: Home Clinical Impression: Hemorrhoid, Urinary tract infection Instructions: DI for Hemorrhoids, DI for Urinary Tract Infection (UTI) Activity Restrictions/Additional Instructions: There was a urine culture performed on your urine today. The does take a couple days to come back. Make sure that you are increasing her fluid intake and would also recommend taking a fiber supplementation to avoid any constipation. Call your primary care doctor for a follow-up. Return to the emergency department for any new or worsening symptoms Prescriptions: New nitrofurantoin monohyd/m-cryst 100 mg capsule 100 mg PO BID 5 Days Qty: 10 RF: 0 No Action isosorbide mononitrate 30 MG tablet extended release 24 hr 30 mg PO QDAY Qty: 90 RF: 5 amlodipine [Norvasc] 5 MG tablet 10 mg PO QDAY Qty: 90 RF: 5 lisinopril 20 MG tablet 20 mg PO Q DAY Qty: 90 RF: 5 clopidogrel [Plavix] 75 MG tablet 75 mg PO QDAY Qty: 90 RF: 5 aspirin 81 MG tablet,delayed release (DR/EC) 81 mg PO QDAY Qty: 100 RF: 5 Glucose: Home Monitor BID Qty: 1 RF: 0 Glucose: Test Strips BID Qty: 60 RF: 4 furosemide 40 MG tablet 40 mg PO QDAY Qty: 90 RF: 0 hydrocortisone acetate [Anusol-HC] 25 MG suppository 25 mg R BID PRNQty: 10 RF: 0 atorvastatin [Lipitor] 20 MG tablet 20 mg PO HS Qty: 90 RF: 3 albuterol sulfate [ProAir HFA] 90 mcg/actuation HFA aerosol inhaler 2 puff INHALATION Q4-6H PRN (Reason: shortness of breath or wheezing) Qty: 8 RF: 2 metoprolol succinate 100 mg tablet extended release 24 hr 100 mg PO QDAY Qty: 90 RF: 2 ranitidine HCl 150 mg tablet 150 mg PO BID Qty: 60 RF: 5 clotrimazole-betamethasone [Lotrisone] 1-0.05 % cream 1 applictn TOP Q12H Qty: 45 RF: 0 miscellaneous medical supply [Blood Pressure Cuff] misc .ROUTE .MEDSUPPLY Qty: 1 RF: 0 cephalexin 500 mg capsule 500 mg PO BID Qty: 8 RF: 0 azithromycin [Zithromax Z-Minh] 250 mg tablet See Label Instructions .ROUTE .COMPLEX Qty: 6 RF: 0 prednisone 20 mg tablet 40 mg PO DAILY Qty: 10 RF: 0 torsemide 20 mg tablet RF: 0 acyclovir 400 mg tablet 1 tab PO DAILY RF: 0 prednisolone acetate 1 % drops,suspension 1 drp ophthalmic (eye) QID RF: 0 levetiracetam 250 mg tablet 250 mg PO BID RF: 0 amlodipine 10 mg tablet 10 mg PO DAILY RF: 0 ranitidine HCl 150 mg tablet RF: 0 albuterol sulfate [Ventolin HFA] 90 mcg/actuation HFA aerosol inhaler 2 puff Inhalation Q4-6H PRN (Reason: shortness of breath or wheezin) RF: 0 glipizide 5 mg tablet 1 tab PO BID RF: 0
[2018-09-09 11:28] LABS: Appearance Urine UA CLEAR; Bilirubin Urine UA NEGATIVE (NEGATIVE); Color Urine UA YELLOW; Glucose Urine UA NEGATIVE (Normal); Ketones Urine UA NEGATIVE (NEGATIVE); Leukocyte Esterase Urine UA NEGATIVE (NEGATIVE); Nitrite Urine UA NEGATIVE (Negative); Occult Blood Urine UA TRACE-INTACT (Negative); Protein Urine UA 2+ (Negative); Urobilinogen Urine UA 0.2 E.U./dL (0.2); pH Urine UA 6.5 (4.5-8.0)
--- NOTE | 2018-09-09 11:33 | PC.NURSE ---
Patient states I feel fine but caregiver says she has new confusion over the last week. Also states she has bleeding hemorrhoids and patient has been scratching at her neck. Pt has red borja over neck and upper chest area where she has been scratching. No rash or other skin abnormalities observed. Patient states she is getting over a cold and feels short of breath with exertion. Lungs are clear throughout.
[2018-09-09 11:38] LABS: RBC Urine 1-5/HPF (0-5/HPF)
[2018-09-09 11:39] LABS: Bacteria Urine Few (2-10); Culture Indicated Urine Specimen Cultured; Squamous Epithelial Cell Urine 1-5 /HPF; WBC Urine 5-10/HPF (0-5/HPF)
[2018-09-09 12:30] VITALS: BP 117/83; PULSE 50; RESP 16; TEMP 36.8; O2SAT 96
== END 2018-09-09 12:32 | disposition home or self-care (01) ==
PROVIDERS: Emergency Provider Emergency Medicine; PCP Family Medicine
DX: K64.9 Unspecified hemorrhoids (principal); N39.0 Urinary tract infection, site not specified
CPT/HCPCS: 81001; 87086; 99282; 99283

== ENCOUNTER 2018-09-19 11:47 | Inpatient (IN) | payer MEDICARE, MEDICAID, SELFPAY ==
[2018-09-19] VITALS (13 sets, daily range): BP systolic 99–146; BP diastolic 57–84; PULSE 54–63; RESP 15–22; TEMP 36.2–36.3; O2SAT 91–97; BMI 35.4; BMI 39.4
--- NOTE | 2018-09-19 11:50 | ED_ITS ---
HPI - SOB/Dyspnea General Chief Complaint: Shortness of Breath/Dyspnea Stated Complaint: lot of trouble breathing Time Seen by Provider: 09/19/18 11:50 Source: patient Mode of arrival: ambulatory Limitations: no limitations History of Present Illness Patient is a 73-year-old female with a history of congestive heart failure who states that she does not have a history of COPD here for evaluation of approximately 10 days of bilateral lower extremity swelling and also problems breathing. No chest pain. States has been a gradual onset. I did evaluate her for an unrelated issue approximately 10 days ago. She states that she was having swelling in her lower extremities at that time but did not mention anything about it on our encounter. She states that it was not as bad as it was today. She states that she can lay flat at night to sleep but has quite a bit of shortness of breath with any sort of exertion. She states she did just run out of her inhaler. Related Data Home Medications Medication Instructions Recorded Confirmed Glucose: Home Monitor 1 pkg MISCELLANEOUS BID 09/09/18 09/09/18 Glucose: Test Strips 1 str MISCELLANEOUS BID 09/09/18 09/09/18 acyclovir 1 tab PO DAILY 09/09/18 09/09/18 albuterol sulfate [Ventolin HFA] 2 puff INHALATION Q4-6H PRN 09/09/18 09/09/18 amlodipine 10 mg PO DAILY 09/09/18 09/19/18 aspirin 325 mg PO DAILY 09/09/18 09/09/18 glipizide 1 tab PO BID 09/09/18 09/19/18 levetiracetam 250 mg PO BID 09/09/18 09/19/18 prednisolone acetate 1 drp OPHTHALMIC (EYE) QID 09/09/18 09/19/18 torsemide 20 mg PO BID 09/09/18 09/09/18 Albutein 5 % 5 mg PRN PRN 09/19/18 09/19/18 metoprolol succinate 1 tab PO DAILY 09/19/18 09/19/18 Previous Rx's Medication Instructions Recorded clopidogrel [Plavix] 75 mg PO QDAY #90 tab 10/17/17 isosorbide mononitrate 30 mg PO QDAY #90 tab 10/17/17 atorvastatin [Lipitor] 20 mg PO HS #90 tab 11/26/17 miscellaneous medical supply misc #1 each 03/23/18 ranitidine HCl 150 mg PO BID #60 tab 07/27/18 Allergies Allergy/AdvReac Type Severity Reaction Status Date / Time azithromycin [AZITHROMYCIN] AdvReac Mild GI UPSET Verified 09/19/18 12:00 Review of Systems Constitutional Denies fatigue, Denies fever(s), Denies headache(s) and Denies lethargy ENT Ears, Nose, Mouth, and Throat: Denies dizziness and Denies headache(s) Cardiovascular Denies chest pain, Denies chest pain with activity, Denies syncope, Denies rapid heart rate, Reports pedal edema, Reports edema, Denies lightheadedness, Denies palpitations, Reports dyspnea and Reports dyspnea on exertion Respiratory Denies cough, Reports dyspnea, Reports dyspnea on exertion and Reports wheezing Gastrointestinal Gastrointestinal: Denies abdominal pain, Denies nausea and Denies vomiting Musculoskeletal Denies myalgias and Denies arthralgias Integumentary/Breasts Denies lesions and Denies rash Neurologic Denies dizziness, Denies syncope and Denies headache(s) Endocrine Denies fatigue and Denies palpitations Hematologic/Lymphatic Denies easy bleeding and Denies easy bruising Allergic/Immunologic Reports wheezing [facility] Social History pets and animals: No water heater temp set < 120 deg: Yes working smoke detector in home: Yes fire extinguisher in home: No carbon monox detector in home: No Smoking Status: Former smoker Exam Initial Vital Signs Initial Vital Signs: Vital Signs Temperature 97.2 F L 09/19/18 12:00 Pulse Rate 54 L 09/19/18 12:00 Respiratory Rate 22 09/19/18 12:00 Blood Pressure 99/68 09/19/18 12:00 Pulse Oximetry 94 09/19/18 12:00 Const General: cooperative, comfortable and No acute distress Orientation: alert, awake and oriented x3 HENMT Head: normal to inspection and normocephalic Resp Effort & Inspection: decreased respiratory effort, not labored, no pursed lip breathing, no retractions, tachypneic and no tripod positioning Auscultation: other (Decreased breath sounds bilaterally with some wheezing) Cardio Rate: bradycardic Rhythm: regular rhythm Pulses: radial pulses present Skin Rashes: no rashes Neuro General: alert, awake and oriented x3 Cognition: normal cognition Extrem General: normal to inspection, capillary refill normal, No no pedal edema and edema (Left greater than right edema) Psych Appearance: grossly normal and well kempt Course Orders Ordered: ED Orders 09/19/18 11:52 XR chest 1V Stat EKG-12 Lead Stat 09/19/18 12:10 B Type Natriuretic Peptide Stat Complete Blood Count AUTO DIFF Stat Comprehensive Metabolic Panel Stat Troponin I Stat 09/19/18 13:22 EKG-12 Lead Stat Discontinued Medications Albuterol/Ipratropium (Duoneb) 3 ml INH NOW ONE Stop: 09/19/18 12:17 Last Admin: 09/19/18 12:24 Dose: 3 ml Albuterol/Ipratropium (Duoneb) 3 ml INH NOW ONE Stop: 09/19/18 12:31 Last Admin: 09/19/18 12:33 Dose: 3 ml Albuterol/Ipratropium (Duoneb) 3 ml INH NOW ONE Stop: 09/19/18 12:31 Last Admin: 09/19/18 12:36 Dose: 3 ml Furosemide (Lasix) 60 mg IV NOW ONE Stop: 09/19/18 13:16 Last Admin: 09/19/18 14:58 Dose: 60 mg Vital Signs - 8 hr 09/19/18 12:00 09/19/18 12:24 09/19/18 12:33 Temperature 97.2 F L Pulse Rate 54 L Respiratory Rate 22 Blood Pressure 99/68 Blood Pressure [Right Arm] Pulse Oximetry 94 93 93 09/19/18 12:37 09/19/18 13:15 09/19/18 13:33 Temperature Pulse Rate 57 L 58 L Respiratory Rate 15 22 Blood Pressure Blood Pressure [Right Arm] 128/62 133/76 Pulse Oximetry 94 91 94 09/19/18 14:25 Temperature Pulse Rate 57 L Respiratory Rate 21 Blood Pressure Blood Pressure [Right Arm] 122/84 Pulse Oximetry 95 MDM - SOB/Dyspnea Lab Data Attestation: I reviewed the patient's lab results. Result diagrams: 09/19/18 12:10 09/19/18 12:10 Lab Results 09/19/18 09/19/18 09/19/18 Range/Units 12:10 12:10 12:10 WBC 4.6 (4.5-11.0) X10^3/uL RBC 3.98 L (4.0-5.2) X10^6/uL Hgb 11.8 L (12.0-16.0) g/dL Hct 36.5 (36-46) % MCV 91.8 (80-100) fL MCH 29.7 (26-34) PG MCHC 32.4 (30-36) % RDW 18.8 H (11.6-14.8) % Plt Count 126 L (150-400) X10^3/uL Neut % (Auto) 71.6 (50-75) % Lymph % (Auto) 12.9 L (25-40) % Ashe % (Auto) 12.0 (3-14) % Eos % (Auto) 3.1 (2-4) % Baso % (Auto) 0.4 (0-2) % Neut # (Auto) 3300 (0347-3300) /uL Sodium 144 (137-145) mmol/L Potassium 4.4 (3.4-5.1) mmol/L Chloride 110 H (98-107) mmol/L Carbon Dioxide 17 L (22-32) mmol/L BUN 55 H (7-17) mg/dL Creatinine 3.00 H (0.52-1.04) mg/dL Estimated GFR 15.3 L (>60) mL/min BUN/Creatinine Ratio 18.3 (6-22) Glucose 178 H (80-110) mg/dL Calcium 9.1 (8.4-10.2) mg/dL Total Bilirubin 0.6 (0.2-1.3) mg/dL AST 48 H (14-36) IU/L ALT 37 (9-52) IU/L Alkaline Phosphatase 101 (38-126) U/L Troponin I 0.071 H Cancelled (0.01-0.034) ng/mL B-Natriuretic Peptide (<100) Total Protein 6.7 (6.3-8.2) g/dL Albumin 3.9 (3.5-5.0) g/dL Globulin 2.8 (1.7-4.1) g/dL Albumin/Globulin Ratio 1.4 (1.0-2.8) Imaging Data Chest x-ray: Radiologist's impression: PROCEDURE: XR CHEST 1V INDICATIONS: Shortness of breath TECHNIQUE: One view of the chest was acquired. COMPARISON: [facility], CR, XR CHEST 2V, 06/29/2018, 14:36. [facility], CR, XR CHEST 1V, 04/09/2018, 13:34. FINDINGS: Surgical changes and devices: Sternotomy wires, presumed prior CABG. Lungs and pleura: No pleural effusions or pneumothorax. Lungs are abnormal with reduced inspiratory volume bilaterally and a small subpulmonic right effusion. Bibasilar atelectasis and/or pneumonia is present greater on the right than the left. Mediastinum: Mediastinal contours appear normal. Heart size is normal. Bones and chest wall: No suspicious bony lesions. Overlying soft tissues appear unremarkable. IMPRESSION: Reduced inspiratory volume, small subpulmonic right effusion, mild bibasilar atelectasis and/or pneumonia greater on the right than the left. Dictated by: Michael Sharp M.D. on 09/19/2018 at 12:15 Approved by: Michael Sharp M.D. on 09/19/2018 at 12:1 ECG Data Attestation: I personally reviewed and interpreted this ECG as follows: Prior ECG tracings: not available for review Interpretation: Sinus bradycardia Ventricular rate of 55 Normal QRS Normal QTC Nonspecific ST T wave changes Repeat EKG timed 147 Sinus bradycardia Ventricular rate of 58 Normal axis Normal QRS Normal QTC Inverted T-waves in V5 V6 which are new MDM Narrative Medical decision making narrative: Patient with left greater than right lower extremity swelling. Patient states that this is always how her swelling presents with the left being greater than the right. She does have atelectasis on her chest x-ray. Does have a elevation in her BNP however this appears to be somewhat chronic for her. Doubt pneumonia. She complains of very vague chest pain. She has had a bypass surgery in the past and she states that she is not feeling anything like the symptoms that led up to her bypass surgery. She does have an elevated troponin which is new compared to March of this year in the setting of her chronic renal insufficiency. I discussed the case with Dr. Billingsley with Cardiology at [facility] he stated that with her creatinine they would not cath the patient. Discussed the case with Dr. Benson with Internal Medicine who accepts the patient here. I did discuss this with the patient who expressed understanding and agreement. Discharge Plan Departure Patient Disposition: Admitted as Observation Clinical Impression: CHF (congestive heart failure), Shortness of breath, Elevated troponin, Chronic kidney insufficiency
[2018-09-19] MEDS: ALBUTEROL/IPRATROPIUM 3 ML AMPUL INH ×3 (12:24→12:36)
[2018-09-19 12:35] LABS: Add Manual Diff / Slide Review NO; Basophils Percent Auto 0.4 % (0-2); Eosinophils Percent Auto 3.1 % (2-4); Hematocrit 36.5 % (36-46); Hemoglobin 11.8 g/dL (12.0-16.0); Lymphocytes Percent Auto 12.9 % (25-40); Mean Corpuscular HGB Conc 32.4 % (30-36); Mean Corpuscular Hemoglobin 29.7 PG (26-34); Mean Corpuscular Volume 91.8 fL (80-100); Neutrophils Absolute Auto 3300 /uL (3000-5900); Neutrophils Percent Auto 71.6 % (50-75); Platelet Count 126 X10^3/uL (150-400); Red Blood Cell Count 3.98 X10^6/uL (4.0-5.2); Red Cell Distribution Width 18.8 % (11.6-14.8); White Blood Cell Count 4.6 X10^3/uL (4.5-11.0)
[2018-09-19 12:48] LABS: Alanine Aminotransferase 37 IU/L (9-52); Albumin 3.9 g/dL (3.5-5.0); Albumin Globulin Ratio 1.4 (1.0-2.8); Alkaline Phosphatase 101 U/L (38-126); Aspartate Aminotransferase 48 IU/L (14-36); BUN Creatinine Ratio 18.3 (6-22); Bilirubin Total 0.6 mg/dL (0.2-1.3); Blood Urea Nitrogen 55 mg/dL (7-17); Calcium 9.1 mg/dL (8.4-10.2); Carbon Dioxide 17 mmol/L (22-32); Chloride 110 mmol/L (98-107); Estimated Glomerular Filt Rate 15.3 mL/min (>60); Globulin 2.8 g/dL (1.7-4.1); Glucose 178 mg/dL (80-110); HEMOLYSIS 37 (0-50); Potassium 4.4 mmol/L (3.4-5.1); Sodium 144 mmol/L (137-145); Total Protein 6.7 g/dL (6.3-8.2)
[2018-09-19 13:00] LABS: Troponin I 0.071 ng/mL (0.01-0.034)
[2018-09-19] MEDS: FUROSEMIDE 100 MG/10 ML VIAL 60 MG IV (14:58)
--- NOTE | 2018-09-19 18:11 | P.HP_ITS ---
History of Present Illness Date Patient Seen: 09/19/18 Chief complaint: lot of trouble breathing Narrative: Patient is a 73-year-old female with severe medical comorbidities of advanced kidney failure, diabetes, systolic heart failure presented to emergency department with complaints of shortness of breath for the past 12 days. Also noted to ER docs some increased edema in her legs. Denies chest pain, fevers or cough. She is rather uncooperative historian to me and will not answer questions clearly but there is note on med list that she ran out of her torsemide and inhaler some time ago. Patient History Medical History Reactive airway disease (Chronic) CHF (congestive heart failure) (Chronic) Chronic kidney disease (Chronic 01/18/17) Essential hypertension (Chronic 01/18/17) 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) Rheumatoid arthritis (Chronic 01/18/17) Type 2 diabetes mellitus with chronic kidney disease, 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) Mild dementia (Chronic 01/26/17) Mild eczema (Chronic 01/18/17) Status post stroke (Resolved 10/26/17) Carpal tunnel syndrome (Acute) Cataract (Acute) Family & Social History Safety & Behavioral: Feels Safe in Current Yes Environment Tobacco & Substance use: Smoking Status Former smoker Substance Use Type does not use Meds Home Medications Medication Instructions Recorded Confirmed Type clopidogrel [Plavix] 75 mg PO QDAY #90 tab 10/17/17 09/19/18 Rx isosorbide mononitrate 30 mg PO QDAY #90 tab 10/17/17 09/19/18 Rx atorvastatin [Lipitor] 20 mg PO HS #90 tab 11/26/17 09/19/18 Rx miscellaneous medical supply misc #1 each 03/23/18 09/19/18 Rx ranitidine HCl 150 mg PO BID #60 tab 07/27/18 09/19/18 Rx Glucose: Home Monitor 1 pkg MISCELLANEOUS BID 09/09/18 09/19/18 History Glucose: Test Strips 1 str MISCELLANEOUS BID 09/09/18 09/19/18 History acyclovir 1 tab PO DAILY 09/09/18 09/19/18 History albuterol sulfate [Ventolin HFA] 2 puff INHALATION Q4-6H PRN 09/09/18 09/19/18 History amlodipine 10 mg PO DAILY 09/09/18 09/19/18 History glipizide 1 tab PO BID 09/09/18 09/19/18 History levetiracetam 250 mg PO BID 09/09/18 09/19/18 History prednisolone acetate 1 drp OPHTHALMIC (EYE) QID 09/09/18 09/19/18 History torsemide 20 mg PO BID 09/09/18 09/19/18 History Albutein 5 % 5 mg PRN PRN 09/19/18 09/19/18 History aspirin 81 mg PO DAILY 09/19/18 09/19/18 History metoprolol succinate 1 tab PO DAILY 09/19/18 09/19/18 History Allergies Allergy/AdvReac Type Severity Reaction Status Date / Time azithromycin [AZITHROMYCIN] AdvReac Mild GI UPSET Verified 09/19/18 12:00 Review of Systems Review of Systems All systems reviewed & are unremarkable except as noted in HPI and below Exam Vital Signs (past 8 hours): - 09/19/18 12:00 09/19/18 12:24 09/19/18 12:33 Temperature 97.2 F L Pulse Rate 54 L Respiratory Rate 22 Blood Pressure 99/68 Blood Pressure [Left Arm] Blood Pressure [Right Arm] Pulse Oximetry 94 93 93 09/19/18 12:37 09/19/18 13:15 09/19/18 13:33 Temperature Pulse Rate 57 L 58 L Respiratory Rate 15 22 Blood Pressure Blood Pressure [Left Arm] Blood Pressure [Right Arm] 128/62 133/76 Pulse Oximetry 94 91 94 09/19/18 14:25 09/19/18 15:08 09/19/18 16:00 Temperature Pulse Rate 57 L 58 L Respiratory Rate 21 20 Blood Pressure Blood Pressure [Left Arm] 140/59 L 138/57 L Blood Pressure [Right Arm] 122/84 Pulse Oximetry 95 94 09/19/18 16:30 Temperature Pulse Rate 55 L Respiratory Rate 22 Blood Pressure 135/74 Blood Pressure [Left Arm] Blood Pressure [Right Arm] Pulse Oximetry 95 Oxygen Delivery Method Room Air Oxygen Flow Rate 94 Narrative Exam Narrative: GENERAL: Tired or sleepy appearing female but not in obvious acute distress at this time HEAD: Atraumatic. Normocephalic. EYES: Pupils equal, round and reactive. Extraocular motions intact. No scleral icterus. No injection or drainage. NECK: Trachea midline. No lymphadenopathy. CARDIOVASCULAR: Regular rate and rhythm without murmurs, gallops, or rubs. RESPIRATORY: Clear to auscultation bilaterally. GASTROINTESTINAL: Abdomen nondistended, soft, non-tender. No hepato- splenomegaly, or palpable masses. EXTREMITIES: Trace pretibial edema bilaterally. NEUROLOGICAL: Lethargic/sleepy, oriented x2, nonfocal SKIN: warm, dry, no rash Objective Imaging Chest x-ray: My impression: Cardiomegaly, moderate right pleural effusion, cannot rule out pneumonia Radiologist's impression: Reduced inspiratory volume, small subpulmonic right effusion, mild bibasilar atelectasis and/or pneumonia greater on the right than the left. ECG: Sinus bradycardia, old anterior HI, possible old inferior HI, nonspecific T-wave abnormalities Labs Result Diagrams: 09/19/18 12:10 09/19/18 12:10 Labs: Laboratory Results - last 24 hr 09/19/18 09/19/18 09/19/18 12:10 12:10 12:10 WBC 4.6 RBC 3.98 L Hgb 11.8 L Hct 36.5 MCV 91.8 MCH 29.7 MCHC 32.4 RDW 18.8 H Plt Count 126 L Neut % (Auto) 71.6 Lymph % (Auto) 12.9 L Armstrong % (Auto) 12.0 Eos % (Auto) 3.1 Baso % (Auto) 0.4 Neut # (Auto) 3300 Sodium 144 Potassium 4.4 Chloride 110 H Carbon Dioxide 17 L BUN 55 H Creatinine 3.00 H Estimated GFR 15.3 L BUN/Creatinine Ratio 18.3 Glucose 178 H Calcium 9.1 Total Bilirubin 0.6 AST 48 H ALT 37 Alkaline Phosphatase 101 Troponin I 0.071 H Cancelled B-Natriuretic Peptide Total Protein 6.7 Albumin 3.9 Globulin 2.8 Albumin/Globulin Ratio 1.4 Assessment & Plan Plan: Assessment/Plan Narrative: 1. Acute on chronic systolic heart failure: Patient presents with shortness of breath for the past couple of weeks. She possibly ran out of her diuretic precipitating this exacerbation. Chest x-ray with moderate right pleural effusion. BNP 4000, normally runs around 3000+ range. No fever, cough, elevated WBC to suggest pneumonia and PE also unlikely. Her echo on 06/03/2018 showed LV EF 20-25%, moderate to severe global LV hypokinesis, inferior wall hypokinesis and mildly dilated LV. Plan: Diuresed with Lasix 80 mg IV every 12 hr. Monitor lytes, BUN and creatinine. Consider discharging on higher dose of torsemide more appropriate for her degree of renal dysfunction. Repeat echo not necessary at this time. 2. Troponin leak: Likely demand related due to heart failure. Repeat 8 hr troponin. Continue patient's low-dose aspirin, clopidogrel, isosorbide, metoprolol succinate per home routine. 3. Chronic kidney disease, stage IV: Admit creatinine 3.0, EGFR 15.3 at baseline. Check daily while on IV Lasix. 4. Diabetes, type 2: Stable, continue patient's glyburide. NovoLog low-dose sliding scale. Disposition: Inpatient status with 2 nights expected hospital course.
[2018-09-19 20:53] LABS: Troponin I 0.071 ng/mL (0.01-0.034)
--- NOTE | 2018-09-19 22:14 | PM.EVENT ---
Date Patient Seen: 09/19/18 Time Patient Seen: 22:08 Received the call from patient's nurse out of concern for patient being dyspnea. Patient got out of bed to use the bathroom and has become significantly short of breath. Patient was seen at the bedside. Patient is mildly tachypneic. Does not appear to have significant dyspnea at rest. Does note some pleurisy. On exam breath: Chest rises equal, breath sounds with mild crackles, significantly diminished, and expiratory wheeze in the lower bases Denies chest pain, however does note pleurisy. She is noted to have left lower extremity unilateral edema, she notes this to be fairly new, in the last 7-10 days. Patient is admitted for CHF exacerbation. No known history of PE or DVT. - due neb q.6 hours scheduled - metolazone 5 mg x1; she is on scheduled Lasix 80 mg IV b.i.d. - continue daily weight and I/O monitoring - left lower extremity venous Doppler ultrasound to rule out DVT - troponin from 8:00 p.m. reviewed, no change from previous
[2018-09-19] MEDS: metOLazone 2.5 MG TABLET 5 MG PO (23:02)
[2018-09-19] MEDS: glipiZIDE 5 MG TABLET PO (23:03)
[2018-09-19] MEDS: ATORVASTATIN 20 MG TABLET PO (23:03)
[2018-09-19] MEDS: CLOPIDOGREL 75 MG TABLET PO (23:03)
[2018-09-19] MEDS: HEPARIN 5,000 UNIT/ML VIAL 5000 UNIT SUBCUT (23:04)
[2018-09-19] MEDS: ISOSORBIDE MONONITRATE ER 30 MG TABLET PO (23:04)
[2018-09-20] VITALS (14 sets, daily range): BP systolic 130–149; BP diastolic 51–75; PULSE 54–76; RESP 18–20; TEMP 36.2–37; O2SAT 93–100
--- NOTE | 2018-09-20 00:24 | PC.NURSE ---
ambar note pt admitted from ER. Pt reports mild SOB with ambulating to bathroom. RA O2 sats 95%. Pt has 1-2+ edema to left lower leg and trace edema to right lower leg. Family reports that pt's left foot was much more swollen last night. Pt is a poor historian and cannot say why she was not taking her diuretic at home. Pt's some arrived and said pt had been discharged from hospital on Lasix and when prescription ran out, there were no directions to restart home dosing of torsemide. Unknown how long pt has been off diuretics. Pt's family reports that pt no longer takes Keppra. Son Jude reports pt had hallucinations and rage with Keppra. Added Keppra to allergy list and removed from [facility]. Pt had sudden onset of SOB while walking to bathroom, says she almost passed out. O2 sats 92% on RA. O2 added at 2L. Has increased work of breathing. Called Viktoriya ALMEIDA who came to see pt. New orders for metolazone, hydrocortisone for neck rash, melatonin for c/o insomnia. Much time spent with family discussing care, history.
--- NOTE | 2018-09-20 00:38 | PC.NURSE ---
Addendum entered by Daryl Arredondo R.N. 09/20/18 01:49: 0140: EKG done, stat labs drawn and sent by kimberly. ELLE Herrera here to see patient and EKG. Pt denies chest pain or pressure. Original Note: Addendum entered by Daryl Arredondo R.N. 09/20/18 01:22: 0110: ICU reported elevated ST on recent rhythm. RT notified of stat EKG. Kirk Muniz notified, and stat labs ordered. Pt is sleeping. Original Note: Bracer Note: 0010: Resting in bed. Remains on O2 1.5L/NC with continuous pulse oximeter reading at 98%. Saline lock in place in rt hand. No complaint of discomfort or pain.
[2018-09-20 01:49] LABS: Creatine Kinase 22 U/L (30-135)
[2018-09-20 02:02] LABS: Troponin I 0.074 ng/mL (0.01-0.034)
--- NOTE | 2018-09-20 06:00 | DI.US.S_ITS ---
PROCEDURE: US PERIPH VENOUS LOW EXTREM LT INDICATIONS: unilateral LLE edema, dyspnea TECHNIQUE: Real-time imaging, as well as color and pulse Doppler interrogation, were performed of the lower extremity deep veins from the inguinal ligament to the popliteal fossa. COMPARISON: None. FINDINGS: The deep veins are normally compressible, and free of intraluminal thrombus. Color and pulse Doppler demonstrate normal phasic intraluminal flow. There is normal augmentation response to distal compression maneuver. The greater saphenous vein was not visualized and is reportedly surgically absent. IMPRESSION: 1. No evidence of deep venous thrombosis in the left lower extremity. Dictated by: Wayne Medrano M.D. on 09/20/2018 at 9:54 Approved by: Wayne Medrano M.D. on 09/20/2018 at 9:55
[2018-09-20 06:51] LABS: BUN Creatinine Ratio 19.3 (6-22); Blood Urea Nitrogen 54 mg/dL (7-17); Carbon Dioxide 21 mmol/L (22-32); Chloride 109 mmol/L (98-107); Estimated Glomerular Filt Rate 16.6 mL/min (>60); Potassium 3.6 mmol/L (3.4-5.1); Sodium 142 mmol/L (137-145)
[2018-09-20 07:01] LABS: HEMOLYSIS 32 (0-50)
[2018-09-20 07:07] LABS: Glucose 45 mg/dL (80-110)
[2018-09-20] MEDS: ALBUTEROL/IPRATROPIUM 3 ML AMPUL INH ×3 (09:50→20:22)
[2018-09-20] MEDS: ACYCLOVIR 400 MG TABLET PO (10:26)
[2018-09-20] MEDS: ISOSORBIDE MONONITRATE ER 30 MG TABLET PO (10:26)
[2018-09-20] MEDS: ASPIRIN EC 81 MG TABLET PO (10:26)
[2018-09-20] MEDS: FUROSEMIDE 100 MG/10 ML VIAL 80 MG IV ×2 (10:27→22:09)
[2018-09-20] MEDS: HEPARIN 5,000 UNIT/ML VIAL 5000 UNIT SUBCUT ×2 (10:27→22:03)
[2018-09-20] MEDS: CLOPIDOGREL 75 MG TABLET PO (10:29)
[2018-09-20] MEDS: SODIUM CHLORIDE 0.9% FLUSH 10 ML IV ×2 (10:29→22:07)
--- NOTE | 2018-09-20 15:54 | PC.NURSE ---
Blood sugars: Late entry During report this morning lab called with critical low blood sugar of 45. We gave her some clear ensure and re-checked in 20 minutes with CBG up to 73. Subsequent checks were 125, 129 and 105. Her Glipizide was held this morning for the same.
--- NOTE | 2018-09-20 17:20 | PM.PN.1 ---
Subjective Date Patient Seen: 09/20/18 Interval history: Patient reports substantial improvement in her shortness of breath. Exam Vital Signs (past 8 hours): - 09/20/18 11:04 09/20/18 13:05 09/20/18 15:34 Temperature 97.4 F L Pulse Rate 64 Respiratory Rate 18 Blood Pressure 139/65 Pulse Oximetry 97 98 96 09/20/18 16:05 09/20/18 16:41 Temperature 98.6 F Pulse Rate 60 Respiratory Rate 20 Blood Pressure 130/51 L Pulse Oximetry 99 100 Oxygen Delivery Method Nasal Cannula Oxygen Flow Rate 2 Narrative Exam Narrative: GENERAL: Patient is in no acute distress HEENT: Head normocephalic, atraumatic. Mucous membranes moist. CHEST: Clear to auscultation bilaterally. CARDIAC: Regular rate and rhythm. ABDOMEN: Nondistended, soft, nontender EXTREMITIES: no edema. NEUROLOGICAL: Alert, pleasant, no focal findings SKIN: Warm, dry, no petechiae, no rash Objective Labs Result Diagrams: 09/19/18 12:10 09/20/18 06:28 Labs: Laboratory Results - last 24 hr 09/19/18 09/20/18 09/20/18 20:12 01:35 06:28 Sodium 142 Potassium 3.6 Chloride 109 H Carbon Dioxide 21 L BUN 54 H Creatinine 2.80 H Estimated GFR 16.6 L BUN/Creatinine Ratio 19.3 Glucose 45 L* D Calcium 9.0 Total Creatine Kinase 22 L CK-MB (CK-2) TNP CK-MB (CK-2) Rel Index TNP Troponin I 0.071 H 0.074 H Assessment & Plan Plan: Assessment/Plan Narrative: 1. Acute on chronic systolic heart failure: Patient has improvement in dyspnea with IV diuresis and nebulizer treatments. She has approximately 2400 mL negative fluid balance over past 24 hr. Lytes, BUN and creatinine stable. She presented with shortness of breath for the past couple of weeks. She possibly ran out of her diuretic precipitating this exacerbation. Chest x-ray with moderate right pleural effusion. BNP 4000, normally runs around 3000+ range. No fever, cough, elevated WBC to suggest pneumonia and PE also unlikely. Her echo on 06/03/2018 showed LV EF 20-25%, moderate to severe global LV hypokinesis, inferior wall hypokinesis and mildly dilated LV. Plan: Continue Lasix 80 mg IV every 12 hr. Monitor lytes, BUN and creatinine. Continue nebs. Consider discharging on higher dose of torsemide more appropriate for her degree of renal dysfunction. Repeat echo not necessary at this time. 2. Troponin leak: Likely demand related due to heart failure. Repeat 8 hr troponin stable. Continue patient's low-dose aspirin, clopidogrel, isosorbide, metoprolol succinate per home routine. 3. Chronic kidney disease, stage IV: Current creatinine 2.8. Admit creatinine 3.0, EGFR 15.3 at baseline. Check daily while on IV Lasix. 4. Diabetes, type 2: Stable, continue patient's glyburide. NovoLog low-dose sliding scale. Disposition: Improving course, likely discharge home tomorrow. Quality VTE Deep Vein Thrombosis/Pulmonary Embolism Present on Admission: No
[2018-09-20] MEDS: ATORVASTATIN 20 MG TABLET PO (22:04)
[2018-09-20] MEDS: glipiZIDE 5 MG TABLET PO (22:05)
[2018-09-20] MEDS: MELATONIN 3 MG TABLET 6 MG PO (22:06)
[2018-09-20] MEDS: HYDROCORTISONE 2.5% OINT 28 GM 1 APPLIC TOP (22:56)
[2018-09-21] VITALS (7 sets, daily range): BP systolic 132–136; BP diastolic 54–89; PULSE 68–77; RESP 15–16; TEMP 36.3–36.8; O2SAT 94–97
--- NOTE | 2018-09-21 | DI.RAD.S_ITS ---
PROCEDURE: XR ANKLE LT MIN 3V INDICATIONS: GLF, r/o fx TECHNIQUE: 3 views of the ankle were acquired. COMPARISON: None. FINDINGS: Bones: No fractures or dislocations. Ankle mortise is normally aligned. No suspicious bony lesions. Soft tissues: No tibiotalar joint effusion. Achilles tendon appears normal. IMPRESSION: No gross acute ankle fracture or dislocation. Dictated by: Marco Kennedy M.D. on 09/21/2018 at 14:09 Approved by: Marco Kennedy M.D. on 09/21/2018 at 14:09
--- NOTE | 2018-09-21 02:09 | PC.NURSE ---
PT Blood sugar <38
[2018-09-21 02:42] LABS: Blood Urea Nitrogen 56 mg/dL (7-17); Calcium 9.4 mg/dL (8.4-10.2); Carbon Dioxide 25 mmol/L (22-32); Chloride 104 mmol/L (98-107); Estimated Glomerular Filt Rate 16.6 mL/min (>60); Glucose 79 mg/dL (80-110); HEMOLYSIS < 15 (0-50); Sodium 144 mmol/L (137-145)
--- NOTE | 2018-09-21 03:03 | PC.NURSE ---
NOC pt AO and family at bedside at start of shift and left shortly after. CBG at 0200 read < 38, gave pt Ensure Clear and called lab for a submitted STAT lab draw, and chemical CBG was 79. We gave the pt a cheese stick and pudding, with orange juice, CBG 20 minutes later 160. Patient denying hypoglycemia s/s, but receptive to care. Stable on feet to BR, using FWW.
[2018-09-21] MEDS: ALBUTEROL/IPRATROPIUM 3 ML AMPUL INH ×2 (05:15→11:20)
--- NOTE | 2018-09-21 08:39 | PC.NURSE ---
Addendum entered by Malini Black R.N. 09/21/18 14:56: reviewed d/c instructions with pt and son at bedside, reviewed new orders for glipazide and torosemide, also reviewed last dose and new instructions. encouraged pt to check blood sugar twice daily, reviewed appt with dr de león and labs prior, color coded sheet for congestive heart failure given to patient and son along with instructions. answered all questions and concerns. 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 pt left with all personal belonings. tele and iv both removed. Original Note: Addendum entered by Malini Black R.N. 09/21/18 12:52: pt reports that the back of her left ankle has increased pain with or without ambulation, ultra sound done yesterday no DVT, reports that she has had a recent fall a last week, notified dr cordova who is ordering an ultrasound Original Note: Day Shift Pt was reported to have BS <34, pt is alert able to communicate needs sat up drinking orange juice and string cheese, stat lab for BS check per protocol. received bs at 0815 45 pt is able to drink and eat, denies shakes, not diaphoretic, states I feel great, rechecked bs 0827 [id number], pt is appropriate with conversation does appear a little forgetful.
[2018-09-21 08:54] LABS: Glucose 52 mg/dL (80-110)
[2018-09-21] MEDS: HYDROCORTISONE 2.5% OINT 28 GM 1 APPLIC TOP (09:12)
[2018-09-21] MEDS: ACYCLOVIR 400 MG TABLET PO (09:12)
[2018-09-21] MEDS: CLOPIDOGREL 75 MG TABLET PO (09:13)
[2018-09-21] MEDS: ISOSORBIDE MONONITRATE ER 30 MG TABLET PO (09:13)
[2018-09-21] MEDS: ASPIRIN EC 81 MG TABLET PO (09:13)
[2018-09-21] MEDS: METOPROLOL ER 50 MG TABLET 100 MG PO (09:13)
[2018-09-21] MEDS: FUROSEMIDE 100 MG/10 ML VIAL 80 MG IV (09:14)
[2018-09-21] MEDS: HEPARIN 5,000 UNIT/ML VIAL 5000 UNIT SUBCUT (09:14)
[2018-09-21] MEDS: SODIUM CHLORIDE 0.9% FLUSH 10 ML IV (09:15)
--- NOTE | 2018-09-21 11:08 | CM.DANOTE ---
DCP: Case received, EMR reviewed and met with patient. Introduced self and role. DCP template completed with information currently available. Patient is a 73 year old female who admitted on the in the afternoon to the care of the hospitalist team. PCP: Dr. Sauer. Payer: confirmed: Medicare/Medicaid. Patient came to hospital with shortness of breath. Patient diagnosed with CHF. Also has history of Diabetes, advanced kidney disease as well. Patient alert, oriented and pleasant. Is currently living in [place] with her children. Stated that she is from [place], but is planning on moving here. P: DCP to continue to follow. May be discharged today, plan if for her to return home with family when stable. Maryellen Bass RN/[employer]
[2018-09-21] MEDS: POTASSIUM CHLORIDE 20 MEQ TAB 40 MEQ PO (12:31)
--- NOTE | 2018-09-21 16:32 | PM.DS.1 ---
History of Present Illness Chief complaint: lot of trouble breathing Narrative: Patient is a 73-year-old female with severe medical comorbidities of advanced kidney failure, diabetes, systolic heart failure presented to emergency department with complaints of shortness of breath for the past 12 days. Also noted to ER docs some increased edema in her legs. Denies chest pain, fevers or cough. She is rather uncooperative historian to me and will not answer questions clearly but there is note on med list that she ran out of her torsemide and inhaler some time ago. Discharge Providers Date of admission: 09/19/18 15:45 Primary care physician: Alexa Sauer MD Discharge provider: Claudy Benson MD Discharge Date: 09/21/18 Summary Discharge Diagnosis: 1. Acute on chronic systolic heart failure 2. Troponin leak without acute [place] 3. Chronic kidney disease stage 4 4. Hypoglycemia complication of diabetes treatment 5. Ankle pain, left Hospital Course: 1. Acute on chronic systolic heart failure: Patient has marked improvement in dyspnea with IV diuresis. She has approximately 4800 mL neck negative fluid balance since admission. Lytes, BUN and creatinine stable. She presented with shortness of breath for the past couple of weeks. She possibly ran out of her diuretic precipitating this exacerbation. Chest x-ray with moderate right pleural effusion. BNP 4000, normally runs around 3000+ range. No fever, cough, elevated WBC to suggest pneumonia and PE also unlikely. Her echo on 06/03/2018 showed LV EF 20-25%, moderate to severe global LV hypokinesis, inferior wall hypokinesis and mildly dilated LV. Plan: Discharged on torsemide 40 mg twice daily. This is increased dose as it is unlikely her previous dose of torsemide was sufficient for her degree of LV dysfunction and severe renal disease. Instructed to have blood work done in 1 week to check basic metabolic panel when she sees PCP. 2. Troponin leak: Likely demand related due to heart failure. Repeat 8 hr troponin stable. Continue patient's low-dose aspirin, clopidogrel, isosorbide, metoprolol succinate per home routine. 3. Chronic kidney disease, stage IV: Stable. Current creatinine 2.8. Admit creatinine 3.0, EGFR 15.3 at baseline. 4. Diabetes, type 2 complicated by hypoglycemia: She had recurrent hypoglycemia on her routine dose of glipizide. She is likely taking too much of this medication with her degree of renal failure. Discharge patient on reduced dose of glipizide 2.5 mg daily. Advised to closely monitor sugars at home. 5. Left ankle pain. Just prior to discharge patient noted pain at her left ankle with weight-bearing. She denied fall. X-rays were normal. She will follow up with PCP. Status at Discharge Functional status at discharge: independent ambulation Overall status at discharge: patient is back to baseline Time Spent with Patient Greater than 30 minutes Exam Vital Signs (past 8 hours): - 09/21/18 09:13 09/21/18 11:22 Pulse Rate 77 72 Respiratory Rate 16 Blood Pressure 136/55 L Pulse Oximetry 95 Oxygen Delivery Method Room Air Oxygen Flow Rate 2 Objective Labs Result Diagrams: 09/19/18 12:10 09/21/18 08:20 Labs: Laboratory Results - last 24 hr 09/21/18 09/21/18 02:23 08:20 Sodium 144 Potassium 3.0 L Chloride 104 Carbon Dioxide 25 BUN 56 H Creatinine 2.80 H Estimated GFR 16.6 L BUN/Creatinine Ratio 20.0 Glucose 79 L 52 L Calcium 9.4 Discharge Plan Discharge Plan Patient Disposition: Home Discharge comment: new Rx sent to [facility] Discharge Med Rec/Prescriptions Prescriptions: New torsemide 20 mg tablet 40 mg PO BID Qty: 120 RF: 0 glipizide 2.5 mg tablet extended release 24hr 2.5 mg PO DAILY Qty: 30 RF: 0 Continue isosorbide mononitrate 30 MG tablet extended release 24 hr 30 mg PO QDAY Qty: 90 RF: 5 clopidogrel [Plavix] 75 MG tablet 75 mg PO QDAY Qty: 90 RF: 5 atorvastatin [Lipitor] 20 MG tablet 20 mg PO HS Qty: 90 RF: 3 ranitidine HCl 150 mg tablet 150 mg PO BID Qty: 60 RF: 5 miscellaneous medical supply [Blood Pressure Cuff] misc .ROUTE .MEDSUPPLY Qty: 1 RF: 0 acyclovir 400 mg tablet 1 tab PO DAILY RF: 0 prednisolone acetate 1 % drops,suspension 1 drp ophthalmic (eye) QID RF: 0 amlodipine 10 mg tablet 10 mg PO DAILY RF: 0 Glucose: Home Monitor 1 pkg miscellaneous BID RF: 0 Glucose: Test Strips 1 str miscellaneous BID RF: 0 Albutein 5 % 5 mg PRN PRN (Reason: sob) RF: 0 metoprolol succinate 100 mg tablet extended release 24 hr 1 tab PO DAILY RF: 0 aspirin 81 mg Tablet,Delayed Release (Dr/Ec) 81 mg PO DAILY RF: 0 albuterol sulfate 90 mcg/actuation HFA aerosol inhaler 2 puff Inhalation Q4-6H PRN (Reason: shortness of breath or wheezin) Qty: 1 RF: 0 Discontinued torsemide 20 mg tablet 20 mg PO BID RF: 0 glipizide 5 mg tablet 1 tab PO BID RF: 0 Follow up/Referrals: Alexa Sauer MD [Primary Care Provider] - 1 Week (Have blood work done to check kidneys in [address] Sauer per [facility] they will call you with a appointment [phone] ) Provider Discharge Instructions Diet: Low-sodium Visit Report/Discharge Packet Instructions: Torsemide Oral, Glipizide Visit Report Forms: Stroke Signs & Symptoms Discharge Data Primary Care Provider: Alexa Sauer Attending Provider: Claudy Benson Admit Date/Time: 09/19/18 15:45 Discharges patient from system. Discharge Date/Time: 09/21/18 14:59 Quality VTE Deep Vein Thrombosis/Pulmonary Embolism Present on Admission: No
--- NOTE | 2018-09-21 16:38 | P.DS_ITS ---
History of Present Illness Chief complaint: lot of trouble breathing Narrative: Patient is a 73-year-old female with severe medical comorbidities of advanced kidney failure, diabetes, systolic heart failure presented to emergency department with complaints of shortness of breath for the past 12 days. Also noted to ER docs some increased edema in her legs. Denies chest pain, fevers or cough. She is rather uncooperative historian to me and will not answer questions clearly but there is note on med list that she ran out of her torsemide and inhaler some time ago. Discharge Providers Date of admission: 09/19/18 15:45 Primary care physician: Alexa Sauer MD Discharge provider: Claudy Benson MD Discharge Date: 09/21/18 Summary Discharge Diagnosis: 1. Acute on chronic systolic heart failure 2. Troponin leak without acute [place] 3. Chronic kidney disease stage 4 4. Hypoglycemia complication of diabetes treatment 5. Ankle pain, left Hospital Course: 1. Acute on chronic systolic heart failure: Patient has marked improvement in dyspnea with IV diuresis. She has approximately 4800 mL neck negative fluid balance since admission. Lytes, BUN and creatinine stable. She presented with shortness of breath for the past couple of weeks. She possibly ran out of her diuretic precipitating this exacerbation. Chest x-ray with moderate right pleural effusion. BNP 4000, normally runs around 3000+ range. No fever, cough, elevated WBC to suggest pneumonia and PE also unlikely. Her echo on 06/03/2018 showed LV EF 20-25%, moderate to severe global LV hypokinesis, inferior wall hypokinesis and mildly dilated LV. Plan: Discharged on torsemide 40 mg twice daily. This is increased dose as it is unlikely her previous dose of torsemide was sufficient for her degree of LV dysfunction and severe renal disease. Instructed to have blood work done in 1 week to check basic metabolic panel when she sees PCP. 2. Troponin leak: Likely demand related due to heart failure. Repeat 8 hr troponin stable. Continue patient's low-dose aspirin, clopidogrel, isosorbide, metoprolol succinate per home routine. 3. Chronic kidney disease, stage IV: Stable. Current creatinine 2.8. Admit creatinine 3.0, EGFR 15.3 at baseline. 4. Diabetes, type 2 complicated by hypoglycemia: She had recurrent hypoglycemia on her routine dose of glipizide. She is likely taking too much of this medication with her degree of renal failure. Discharge patient on reduced dose of glipizide 2.5 mg daily. Advised to closely monitor sugars at home. 5. Left ankle pain. Just prior to discharge patient noted pain at her left ankle with weight-bearing. She denied fall. X-rays were normal. She will follow up with PCP. Status at Discharge Functional status at discharge: independent ambulation Overall status at discharge: patient is back to baseline Time Spent with Patient Greater than 30 minutes Exam Vital Signs (past 8 hours): - 09/21/18 09:13 09/21/18 11:22 Pulse Rate 77 72 Respiratory Rate 16 Blood Pressure 136/55 L Pulse Oximetry 95 Oxygen Delivery Method Room Air Oxygen Flow Rate 2 Objective Labs Result Diagrams: 09/19/18 12:10 09/21/18 08:20 Labs: Laboratory Results - last 24 hr 09/21/18 09/21/18 02:23 08:20 Sodium 144 Potassium 3.0 L Chloride 104 Carbon Dioxide 25 BUN 56 H Creatinine 2.80 H Estimated GFR 16.6 L BUN/Creatinine Ratio 20.0 Glucose 79 L 52 L Calcium 9.4 Discharge Plan Discharge Plan Patient Disposition: Home Discharge comment: new Rx sent to [facility] Discharge Med Rec/Prescriptions Prescriptions: New torsemide 20 mg tablet 40 mg PO BID Qty: 120 RF: 0 glipizide 2.5 mg tablet extended release 24hr 2.5 mg PO DAILY Qty: 30 RF: 0 Continue isosorbide mononitrate 30 MG tablet extended release 24 hr 30 mg PO QDAY Qty: 90 RF: 5 clopidogrel [Plavix] 75 MG tablet 75 mg PO QDAY Qty: 90 RF: 5 atorvastatin [Lipitor] 20 MG tablet 20 mg PO HS Qty: 90 RF: 3 ranitidine HCl 150 mg tablet 150 mg PO BID Qty: 60 RF: 5 miscellaneous medical supply [Blood Pressure Cuff] misc .ROUTE .MEDSUPPLY Qty: 1 RF: 0 acyclovir 400 mg tablet 1 tab PO DAILY RF: 0 prednisolone acetate 1 % drops,suspension 1 drp ophthalmic (eye) QID RF: 0 amlodipine 10 mg tablet 10 mg PO DAILY RF: 0 Glucose: Home Monitor 1 pkg miscellaneous BID RF: 0 Glucose: Test Strips 1 str miscellaneous BID RF: 0 Albutein 5 % 5 mg PRN PRN (Reason: sob) RF: 0 metoprolol succinate 100 mg tablet extended release 24 hr 1 tab PO DAILY RF: 0 aspirin 81 mg Tablet,Delayed Release (Dr/Ec) 81 mg PO DAILY RF: 0 albuterol sulfate 90 mcg/actuation HFA aerosol inhaler 2 puff Inhalation Q4-6H PRN (Reason: shortness of breath or wheezin) Qty: 1 RF: 0 Discontinued torsemide 20 mg tablet 20 mg PO BID RF: 0 glipizide 5 mg tablet 1 tab PO BID RF: 0 Follow up/Referrals: Alexa Sauer MD [Primary Care Provider] - 1 Week (Have blood work done to check kidneys in [address] Sauer per [facility] they will call you with a appointment [phone] ) Provider Discharge Instructions Diet: Low-sodium Visit Report/Discharge Packet Instructions: Torsemide Oral, Glipizide Visit Report Forms: Stroke Signs & Symptoms Discharge Data Primary Care Provider: Alexa Sauer Attending Provider: Claudy Benson Admit Date/Time: 09/19/18 15:45 Discharges patient from system. Discharge Date/Time: 09/21/18 14:59 Quality VTE Deep Vein Thrombosis/Pulmonary Embolism Present on Admission: No
== END 2018-09-21 14:59 | disposition home or self-care (01) | DRG 291 ==
LOC: ED 15:02 → AC 16:39
PROVIDERS: Nurse Practitioner Gerontology; Admitting Provider Internal Medicine; Emergency Provider Emergency Medicine; PCP Family Medicine; Visit Provider Internal Medicine
DX: I13.0 Hypertensive heart and chronic kidney disease with heart failure and stage 1 through stage 4 chronic kidney disease, or unspecified chronic kidney disease (principal); I50.23 Acute on chronic systolic (congestive) heart failure; N18.4 Chronic kidney disease, stage 4 (severe); I24.8 Other forms of acute ischemic heart disease; E11.22 Type 2 diabetes mellitus with diabetic chronic kidney disease; E11.649 Type 2 diabetes mellitus with hypoglycemia without coma; Z79.84 Long term (current) use of oral hypoglycemic drugs; M06.9 Rheumatoid arthritis, unspecified; M25.572 Pain in left ankle and joints of left foot
CPT/HCPCS: 36415; 36591; 71045; 73610; 80048; 80053; 82550; 82947; 82962; 83880; 84484; 85025; 93005; 93971; 94640; 94760; 96374; 99283; 99285; J1644; J1940